=== PATIENT | female | born 1950 | race Caucasian/White ===

== ENCOUNTER 2016-11-28 08:19 | Outpatient (CLI) | payer MEDICARE, MEDICAID | END 2016-11-28 08:20 | disposition home or self-care (01) | DX: E11.40 Type 2 diabetes mellitus with diabetic neuropathy, unspecified (principal); E78.5 Hyperlipidemia, unspecified; R53.83 Other fatigue ==

== ENCOUNTER 2016-12-18 14:30 | Outpatient (CLI) | payer MEDICARE, MEDICAID | END 2016-12-18 14:31 | disposition home or self-care (01) | DX: E03.9 Hypothyroidism, unspecified (principal) ==

== ENCOUNTER 2017-02-27 13:37 | Outpatient (CLI) | payer MEDICARE, MEDICAID | END 2017-02-27 13:38 | disposition home or self-care (01) | DX: E03.9 Hypothyroidism, unspecified (principal) ==

== ENCOUNTER 2017-12-12 11:03 | Outpatient (CLI) | payer MEDICARE, MEDICAID ==
[2017-12-12 11:59] LABS: BASOPHILS # (AUTO) 0.1 10^3/uL (0.0-0.1); BASOPHILS % (AUTO) 1.6 %; EOSINOPHILS # (AUTO) 0.2 10^3/uL (0.0-0.7); EOSINOPHILS % (AUTO) 2.3 %; HGB - HEMOGLOBIN 13.4 g/dL (12.0-16.0); LYMPHOCYTES # (AUTO) 1.3 10^3/uL (1.5-3.5); LYMPHOCYTES % (AUTO) 16.7 %; MEAN CORPUSCULAR HEMOGLOBIN 29.3 pg (27.0-31.0); MEAN CORPUSCULAR HGB CONC 35.3 g/dL (32.0-36.0); MEAN CORPUSCULAR VOLUME 83.1 fL (81.0-99.0); MEAN PLATELET VOLUME 7.6 fL (7.9-10.8); MONOCYTES # (AUTO) 0.4 10^3/uL (0.0-1.0); NEUTROPHILS # (AUTO) 5.8 10^3/uL (1.5-6.6); NEUTROPHILS % (AUTO) 74.4 %; PLT - PLATELET COUNT 182 10^3/uL (130-450); RED BLOOD COUNT 4.58 10^6/uL (4.20-5.40); RED CELL DISTRIBUTION WIDTH 14.6 % (12.0-15.0); WHITE BLOOD COUNT 7.8 x10^3/uL (4.8-10.8)
[2017-12-12 12:10] LABS: BUN - BLOOD UREA NITROGEN 19 mg/dL (6-20); CALCIUM 9.1 mg/dL (8.5-10.3); CARBON DIOXIDE - CO2 26 mmol/L (21-32); CHLORIDE 104 mmol/L (101-111); CHOL/HDL RATIO 5.3 (<4.4); CHOLESTEROL 143 mg/dL; CREATININE 0.9 mg/dL (0.4-1.0); GFR - MDRD 62 (>89); GLUCOSE 242 mg/dL (70-100); HDL CHOLESTEROL 27 mg/dL; LDL CHOLESTEROL,CALCULATED 84 mg/dL; LDL/HDL RATIO 3.1 (<4.4); SODIUM 141 mmol/L (135-145); VLDL CHOLESTEROL 32 mg/dL
[2017-12-12 12:29] LABS: HB2 TOTAL 14.5 g/dL; HEMOGLOBIN A1C 0.92 g/dL
== END 2017-12-12 11:04 | disposition home or self-care (01) ==
LOC: LAB 11:03
PROVIDERS: ATTEND Physician Assistant Medical
DX: I12.9 Hypertensive chronic kidney disease with stage 1 through stage 4 chronic kidney disease, or unspecified chronic kidney disease (principal); N18.2 Chronic kidney disease, stage 2 (mild); Z79.4 Long term (current) use of insulin; E78.5 Hyperlipidemia, unspecified; M85.80 Other specified disorders of bone density and structure, unspecified site; E55.9 Vitamin D deficiency, unspecified; E11.40 Type 2 diabetes mellitus with diabetic neuropathy, unspecified; K21.9 Gastro-esophageal reflux disease without esophagitis; F32.9 Major depressive disorder, single episode, unspecified; I63.9 Cerebral infarction, unspecified
CPT/HCPCS: 36415; 80048; 80061; 82306; 83036; 83721; 85025

== ENCOUNTER 2017-12-29 08:50 | Outpatient (CLI) | payer MEDICARE, MEDICAID | END 2017-12-29 08:51 | disposition EMS.NT | LOC: EMS 08:50 | PROVIDERS: ATTEND Surgery | DX: M25.561 Pain in right knee (principal); W18.30XA Fall on same level, unspecified, initial encounter; Y92.039 Unspecified place in apartment as the place of occurrence of the external cause ==

== ENCOUNTER 2018-03-13 10:04 | Outpatient (CLI) | payer MEDICARE, MEDICAID ==
[2018-03-13 10:50] LABS: BASOPHILS # (AUTO) 0.1 10^3/uL (0.0-0.1); BASOPHILS % (AUTO) 0.7 %; EOSINOPHILS # (AUTO) 0.1 10^3/uL (0.0-0.7); EOSINOPHILS % (AUTO) 1.7 %; HGB - HEMOGLOBIN 13.3 g/dL (12.0-16.0); LYMPHOCYTES # (AUTO) 1.4 10^3/uL (1.5-3.5); LYMPHOCYTES % (AUTO) 16.2 %; MEAN CORPUSCULAR HEMOGLOBIN 29.3 pg (27.0-31.0); MEAN CORPUSCULAR HGB CONC 33.9 g/dL (32.0-36.0); MEAN CORPUSCULAR VOLUME 86.5 fL (81.0-99.0); MEAN PLATELET VOLUME 7.8 fL (7.9-10.8); MONOCYTES # (AUTO) 0.4 10^3/uL (0.0-1.0); MONOCYTES % (AUTO) 4.9 %; NEUTROPHILS # (AUTO) 6.5 10^3/uL (1.5-6.6); NEUTROPHILS % (AUTO) 76.5 %; PLT - PLATELET COUNT 167 10^3/uL (130-450); RED BLOOD COUNT 4.56 10^6/uL (4.20-5.40); RED CELL DISTRIBUTION WIDTH 14.3 % (12.0-15.0); WHITE BLOOD COUNT 8.5 x10^3/uL (4.8-10.8)
[2018-03-13 11:22] LABS: CALCIUM 9.3 mg/dL (8.5-10.3); CREATININE 0.9 mg/dL (0.4-1.0)
[2018-03-13 11:41] LABS: HB2 TOTAL 14.6 g/dL; HEMOGLOBIN A1C 1.02 g/dL; HEMOGLOBIN A1C % 8.5 % (4.6-6.2)
== END 2018-03-13 10:05 | disposition home or self-care (01) ==
LOC: LAB 10:04
PROVIDERS: ATTEND Physician Assistant Medical
DX: Z79.4 Long term (current) use of insulin (principal); E11.40 Type 2 diabetes mellitus with diabetic neuropathy, unspecified
CPT/HCPCS: 36415; 80048; 83036; 85025

== ENCOUNTER 2018-08-20 09:57 | Outpatient (CLI) | payer MEDICARE, MEDICAID ==
[2018-08-20 10:35] LABS: CALCIUM 8.9 mg/dL (8.5-10.3); CREATININE 0.9 mg/dL (0.4-1.0)
[2018-08-20 13:08] LABS: HB2 TOTAL 14.9 g/dL; HEMOGLOBIN A1C 0.93 g/dL; HEMOGLOBIN A1C % 7.9 % (4.6-6.2)
== END 2018-08-20 09:58 | disposition home or self-care (01) ==
LOC: LAB 09:57
PROVIDERS: ATTEND Physician Assistant Medical
DX: N18.2 Chronic kidney disease, stage 2 (mild) (principal); E11.40 Type 2 diabetes mellitus with diabetic neuropathy, unspecified
CPT/HCPCS: 36415; 80048; 83036

== ENCOUNTER 2018-12-10 08:00 | Outpatient (CLI) | payer MEDICARE, MEDICAID ==
[2018-12-10 19:57] LABS: HB2 TOTAL 14.9 g/dL; HEMOGLOBIN A1C 0.96 g/dL
== END 2018-12-10 23:59 | disposition home or self-care (01) ==
LOC: LAB.N 08:00
PROVIDERS: ATTEND Physician Assistant Medical
DX: E11.9 Type 2 diabetes mellitus without complications (principal)
CPT/HCPCS: 36415; 83036

== ENCOUNTER 2019-04-26 08:00 | Outpatient (CLI) | payer MEDICARE, MEDICAID ==
[2019-04-26 09:17] LABS: CHOL/HDL RATIO 4.2 (<4.4); CHOLESTEROL 135 mg/dL; HDL CHOLESTEROL 32 mg/dL; LDL CHOLESTEROL,CALCULATED 59 mg/dL; LDL/HDL RATIO 1.8 (<4.4); VLDL CHOLESTEROL 44 mg/dL
[2019-04-26 09:20] LABS: HB2 TOTAL 14.5 g/dL; HEMOGLOBIN A1C 1.08 g/dL
== END 2019-04-26 23:59 | disposition home or self-care (01) ==
LOC: LAB 08:00
PROVIDERS: ATTEND Physician Assistant Medical
DX: E11.9 Type 2 diabetes mellitus without complications (principal); E78.5 Hyperlipidemia, unspecified
CPT/HCPCS: 36415; 80061; 83036; 83721

== ENCOUNTER 2019-09-09 10:08 | Outpatient (CLI) | payer MEDICARE, MEDICAID | END 2019-09-09 10:09 | disposition home or self-care (01) | LOC: LAB 10:08 | PROVIDERS: ATTEND Physician Assistant Medical | DX: E03.9 Hypothyroidism, unspecified (principal) | CPT/HCPCS: 36415; 84443 ==

== ENCOUNTER 2019-09-15 10:15 | Outpatient (CLI) | payer MEDICARE, MEDICAID ==
[2019-09-15 12:43] LABS: CALCIUM 9.5 mg/dL (8.5-10.3); CREATININE 0.9 mg/dL (0.4-1.0)
[2019-09-15 13:03] LABS: HB2 TOTAL 14.3 g/dL; HEMOGLOBIN A1C 0.93 g/dL; HEMOGLOBIN A1C % 8.1 % (4.6-6.2)
== END 2019-09-15 23:59 | disposition home or self-care (01) ==
LOC: LAB.N 10:15
PROVIDERS: ATTEND Physician Assistant Medical
DX: E11.9 Type 2 diabetes mellitus without complications (principal)
CPT/HCPCS: 36415; 80048; 83036

== ENCOUNTER 2019-11-23 10:06 | Outpatient (CLI) | payer MEDICARE, MEDICAID ==
[2019-11-23 10:21] LABS: BASOPHILS # (AUTO) 0.1 10^3/uL (0.0-0.1); BASOPHILS % (AUTO) 0.5 %; EOSINOPHILS # (AUTO) 0.1 10^3/uL (0.0-0.7); EOSINOPHILS % (AUTO) 1.4 %; HGB - HEMOGLOBIN 13.7 g/dL (12.0-16.0); LYMPHOCYTES # (AUTO) 1.8 10^3/uL (1.5-3.5); LYMPHOCYTES % (AUTO) 19.6 %; MEAN CORPUSCULAR HEMOGLOBIN 29.7 pg (27.0-31.0); MEAN CORPUSCULAR HGB CONC 33.5 g/dL (32.0-36.0); MEAN CORPUSCULAR VOLUME 88.7 fL (81.0-99.0); MEAN PLATELET VOLUME 9.9 fL (7.9-10.8); MONOCYTES # (AUTO) 0.5 10^3/uL (0.0-1.0); MONOCYTES % (AUTO) 5.7 %; NEUTROPHILS # (AUTO) 6.7 10^3/uL (1.5-6.6); NEUTROPHILS % (AUTO) 72.3 %; PLT - PLATELET COUNT 175 10^3/uL (130-450); RED BLOOD COUNT 4.61 10^6/uL (4.20-5.40); RED CELL DISTRIBUTION WIDTH 13.6 % (12.0-15.0); WHITE BLOOD COUNT 9.2 x10^3/uL (4.8-10.8)
== END 2019-11-23 10:07 | disposition home or self-care (01) ==
LOC: LAB 10:06
PROVIDERS: ATTEND Physician Assistant Medical
DX: I10 Essential (primary) hypertension (principal)
CPT/HCPCS: 36415; 85025

== ENCOUNTER 2020-01-31 10:33 | Outpatient (CLI) | payer MEDICARE, MEDICAID ==
[2020-01-31 11:09] LABS: HB2 TOTAL 13.7 g/dL; HEMOGLOBIN A1C 0.79 g/dL; HEMOGLOBIN A1C % 7.4 % (4.6-6.2)
== END 2020-01-31 10:34 | disposition home or self-care (01) ==
LOC: LAB 10:33
PROVIDERS: ATTEND Physician Assistant Medical
DX: E11.9 Type 2 diabetes mellitus without complications (principal)
CPT/HCPCS: 36415; 83036

== ENCOUNTER 2021-01-21 16:29 | Inpatient (IN) | payer MEDICARE, MEDICAID ==
--- NOTE | 2021-01-21 16:53 | ED Physician Documentation ---
PD HPI DYSPNEA - Stated complaint Stated Complaint: SOA - Chief complaint Chief Complaint: Resp - History obtained from History obtained from: Patient, Family (Her daughter who is a nurse here) - Additional information Additional information: 70-year-old woman with history of diabetes, hypertension, CVA and PFO repair presents with 2 weeks of worsening shortness of breath, quite bad since last night. There is a mild cough with it. No fever or chills. No other respiratory symptoms. She has mild pedal edema but her daughter says it has been much worse in the past. Review of Systems Ten Systems: 10 systems reviewed and negative Constitutional: denies: Fever, Chills Nose: denies: Rhinorrhea / runny nose, Congestion Cardiac: reports: Pedal edema. denies: Palpitations, Calf pain Respiratory: reports: Dyspnea, Cough. denies: Hemoptysis, Wheezing PD PAST MEDICAL HISTORY - Past Medical History Cardiovascular: Hypertension, High cholesterol Endocrine/Autoimmune: Type 2 diabetes GI: GERD Musculoskeletal: Other - Present Medications Home Medications: Ambulatory Orders Medication Instructions Recorded Confirmed Furosemide [Lasix] 20 mg PO BID 08/08/14 01/21/21 Insulin Glargine [Lantus] 80 units SUBQ DAILY 08/08/14 01/21/21 Losartan [Cozaar] 100 mg PO DAILY 08/08/14 01/21/21 Metformin HCl [Metformin HCl ER] 1,000 mg PO BID 08/08/14 01/21/21 Aspirin 325 mg PO DAILY 08/09/14 01/21/21 Carvedilol [Coreg] 25 mg PO BID 08/09/14 01/21/21 DULoxetine [Cymbalta] 20 mg PO DAILY 08/09/14 01/21/21 Potassium Chloride 10 meq PO DAILY 08/09/14 01/21/21 raNITIdine HCL [Ranitidine HCl] 150 mg PO BID 08/09/14 01/21/21 Amlodipine Besylate 5 mg PO DAILY 10/09/15 01/21/21 Atorvastatin [Lipitor] 40 mg PO DAILY 10/09/15 01/21/21 Insulin Aspart [Novolog] 15 unit SQ AC 10/09/15 01/21/21 Topiramate 50 mg PO BID 10/09/15 01/21/21 - Allergies Allergies/Adverse Reactions: Allergies Allergy/AdvReac Type Severity Reaction Status Date / Time No Known Drug Allergies Allergy Verified 01/21/21 18:49 - Social History Smoking Status: Unknown if ever smoked PD ED PE NORMAL - Vitals Vital signs reviewed: Yes - General General: Alert and oriented X 3, Other (She appears breathless and gets agitated in a supine position. Some word finding difficulties due to stroke.) - HEENT HEENT: PERRL, EOMI - Neck Neck: Supple, no meningeal sign, No bony TTP - Cardiac Cardiac: RRR, No murmur - Respiratory Respiratory: No respiratory distress, Clear bilaterally - Abdomen Abdomen: Soft, Non tender - Back Back: No CVA TTP, No spinal TTP - Extremities Extremities: No calf tenderness / cord, Other (Trace bilateral pitting pedal edema) - Neuro Neuro: Alert and oriented X 3, Normal speech Results - Vitals Vitals: Vital Signs - 24 hr 01/21/21 01/21/21 01/21/21 16:40 16:57 17:09 Temperature 36.1 C L Heart Rate 71 68 Respiratory 21 16 Rate Blood Pressure 138/54 H 125/56 L O2 Saturation 80 L 98 95 01/21/21 01/21/21 01/21/21 17:20 17:46 17:47 Temperature 36.6 C Heart Rate 64 61 62 Respiratory 18 19 18 Rate Blood Pressure 132/55 H 127/56 L 127/56 L O2 Saturation 97 93 92 01/21/21 18:00 Temperature Heart Rate 61 Respiratory 13 Rate Blood Pressure 119/56 L O2 Saturation 91 L Oxygen O2 Source Room air Oxygen Flow Rate 4 - EKG (time done) 1632 Rate: Rate (enter#) (69) Rhythm: NSR, LAE Addison: RAD Intervals: Normal CO QRS: Low voltage Ischemia: Non specific changes - Labs Labs: Laboratory Tests 01/21/21 01/21/21 01/21/21 17:04 17:04 17:04 WBC 12.0 H RBC 4.59 Hgb 13.4 Hct 43.8 MCV 95.4 MCH 29.2 MCHC 30.6 L RDW 15.9 H Plt Count 225 MPV 9.7 Neut # (Auto) 10.0 H Lymph # (Auto) 1.2 L Green # (Auto) 0.5 Eos # (Auto) 0.0 Baso # (Auto) 0.1 Absolute Nucleated RBC 0.06 Nucleated RBC % 0.5 D-Dimer 246.0 Sodium 140 Potassium 4.4 Chloride 106 Carbon Dioxide 24 Anion Gap 10.0 BUN 32 H Creatinine 1.1 H Estimated GFR (MDRD) 49 L Glucose 140 H Calcium 9.4 Total Bilirubin 1.0 AST 14 ALT 16 Alkaline Phosphatase 73 Troponin I High Sens B-Natriuretic Peptide Total Protein 7.5 Albumin 4.0 Globulin 3.5 Albumin/Globulin Ratio 1.1 Lipase 41 Nasal Adenovirus (PCR) Nasal B. parapertussis DNA (PCR) Nasal Coronavir 229E PCR Nasal Coronavir HKU1 PCR Nasal Coronavir NL63 PCR Nasal Coronavir OC43 PCR Nasal Enterovir/Rhinovir PCR Nasal Influenza B PCR Nasal Influenza A PCR Nasal Parainfluen 1 PCR Nasal Parainfluen 2 PCR Nasal Parainfluen 3 PCR Nasal Parainfluen 4 PCR Nasal RSV (PCR) Nasal B.pertussis DNA PCR Nasal C.pneumoniae (PCR) Sin Human Metapneumo PCR Nasal M.pneumoniae (PCR) Nasal SARS-CoV-2 (PCR) 01/21/21 01/21/21 01/21/21 17:04 17:04 17:05 WBC RBC Hgb Hct MCV MCH MCHC RDW Plt Count MPV Neut # (Auto) Lymph # (Auto) Green # (Auto) Eos # (Auto) Baso # (Auto) Absolute Nucleated RBC Nucleated RBC % D-Dimer Sodium Potassium Chloride Carbon Dioxide Anion Gap BUN Creatinine Estimated GFR (MDRD) Glucose Calcium Total Bilirubin AST ALT Alkaline Phosphatase Troponin I High Sens 18.7 H* B-Natriuretic Peptide 338 H Total Protein Albumin Globulin Albumin/Globulin Ratio Lipase Nasal Adenovirus (PCR) NOT DETECTED Nasal B. parapertussis DNA (PCR) NOT DETECTED Nasal Coronavir 229E PCR NOT DETECTED Nasal Coronavir HKU1 PCR NOT DETECTED Nasal Coronavir NL63 PCR NOT DETECTED Nasal Coronavir OC43 PCR NOT DETECTED Nasal Enterovir/Rhinovir PCR NOT DETECTED Nasal Influenza B PCR NOT DETECTED Nasal Influenza A PCR NOT DETECTED Nasal Parainfluen 1 PCR NOT DETECTED Nasal Parainfluen 2 PCR NOT DETECTED Nasal Parainfluen 3 PCR NOT DETECTED Nasal Parainfluen 4 PCR NOT DETECTED Nasal RSV (PCR) NOT DETECTED Nasal B.pertussis DNA PCR NOT DETECTED Nasal C.pneumoniae (PCR) NOT DETECTED Sin Human Metapneumo PCR NOT DETECTED Nasal M.pneumoniae (PCR) NOT DETECTED Nasal SARS-CoV-2 (PCR) NOT DETECTED - Rads (name of study) 1v chest Radiology: EMP read contemporaneously (c/w CHF exac) PD MEDICAL DECISION MAKING - ED course ED course: 70-year-old woman presents with shortness of breath. She is slightly agitated and feeling better when sitting up. She has significant orthopnea. Pulmonary examination is somewhat limited by body habitus but the remainder of the work-up suggests CHF as the cause. She received IV Lasix here and Dr. Wiggins will admit Given the need for supplemental oxygen. Departure - Departure Disposition: 66 [facility] DC/Xfer Clinical Impression: Type 2 diabetes mellitus treated with insulin, History of Amplatzer atrial septal defect closure, Acute respiratory failure with hypoxia Congestive heart failure Qualifiers: Heart failure type: unspecified Heart failure chronicity: unspecified Qualified Code(s): I50.9 - Heart failure, unspecified Condition: Stable Discharge Date/Time: 01/21/21 19:04
--- NOTE | 2021-01-21 17:11 | XRAY Report ---
PROCEDURE: Chest 1 View X-Ray INDICATIONS: Chest Pain TECHNIQUE: One view of the chest was acquired. COMPARISON: 04/21/2014 FINDINGS: Surgical changes and devices: None. Lungs and pleura: Pulmonary edema, small right pleural effusion, bibasilar atelectasis. Mediastinum: Mediastinal contours appear normal. Cardiomegaly. Bones and chest wall: No suspicious bony lesions. Overlying soft tissues appear unremarkable. IMPRESSION: Congestive heart failure exacerbation. Reviewed by: Jake Lee MD on 01/21/2021 4:10 PM [facility] Approved by: Jake Lee MD on 01/21/2021 4:10 PM [facility] Station ID: [id number]
[2021-01-21 17:21] LABS: BASOPHILS # (AUTO) 0.1 10^3/uL (0.0-0.1); BASOPHILS % (AUTO) 0.7 %; EOSINOPHILS % (AUTO) 0.3 %; HCT - HEMATOCRIT 43.8 % (37.0-47.0); HGB - HEMOGLOBIN 13.4 g/dL (12.0-16.0); LYMPHOCYTES # (AUTO) 1.2 10^3/uL (1.5-3.5); LYMPHOCYTES % (AUTO) 9.7 %; MEAN CORPUSCULAR HEMOGLOBIN 29.2 pg (27.0-31.0); MEAN CORPUSCULAR HGB CONC 30.6 g/dL (32.0-36.0); MEAN CORPUSCULAR VOLUME 95.4 fL (81.0-99.0); MEAN PLATELET VOLUME 9.7 fL (7.9-10.8); MONOCYTES # (AUTO) 0.5 10^3/uL (0.0-1.0); MONOCYTES % (AUTO) 4.3 %; NEUTROPHILS % (AUTO) 82.9 %; NRBC ABSOLUTE COUNT (AUTO) 0.06 x10^3/uL; NUCLEATED RED BLOOD CELLS AUTO 0.5 /100WBC; PLT - PLATELET COUNT 225 10^3/uL (130-450); RED BLOOD COUNT 4.59 10^6/uL (4.20-5.40); RED CELL DISTRIBUTION WIDTH 15.9 % (12.0-15.0)
[2021-01-21 17:34] LABS: ALBUMIN/GLOBULIN RATIO 1.1 (1.0-2.2); CALCIUM 9.4 mg/dL (8.5-10.3); CREATININE 1.1 mg/dL (0.4-1.0); POTASSIUM 4.4 mmol/L (3.5-5.0); TOTAL PROTEIN 7.5 g/dL (6.7-8.2)
[2021-01-21] MEDS ORDERED: FUROSEMIDE 40 MG/4 ML VIAL IVP STA (17:53)
[2021-01-21] MEDS ORDERED: SODIUM CHLORIDE FLUSH 0.9% 10 ML SYRINGE IVP PRN (18:02)
[2021-01-21] MEDS ORDERED: ONDANSETRON ODT 4 MG TABLET TL PRN (18:09)
[2021-01-21] MEDS ORDERED: ACETAMINOPHEN 325 MG TABLET PO PRN (18:09)
[2021-01-21] MEDS ORDERED: ONDANSETRON 4 MG/2 ML VIAL IVP PRN (18:09)
[2021-01-21] MEDS ORDERED: oxyCODONE 5 MG TABLET PO PRN (18:09)
[2021-01-21 18:22] LABS: B. PARAPERTUSSIS- RESP PCR PAN NOT DETECTED; B. PERTUSSIS- RESP PCR PANEL NOT DETECTED; C. PNEUMONIAE- RESP PCR PANEL NOT DETECTED; CORONAVIRUS 229E-RESP PCR NOT DETECTED; CORONAVIRUS HKU1-RESP PCR NOT DETECTED; CORONAVIRUS NL63-RESP PCR NOT DETECTED; CORONAVIRUS OC43-RESP PCR NOT DETECTED; HUMAN METAPNEUMOVIRUS NOT DETECTED; INFLUENZA A- RESP PCR PANEL NOT DETECTED; INFLUENZA B - RESP PCR PANEL NOT DETECTED; M. PNEUMONIAE- RESP PCR PANEL NOT DETECTED; PARAINFLUENZA VIRUS 1 NOT DETECTED; PARAINFLUENZA VIRUS 2 NOT DETECTED; PARAINFLUENZA VIRUS 3 NOT DETECTED; PARAINFLUENZA VIRUS 4 NOT DETECTED; RHINOVIRUS/ENTEROVIRUS NOT DETECTED; RSV- RESP PCR PANEL NOT DETECTED; SARS-CoV-2 -RESP PCR PANEL NOT DETECTED
--- NOTE | 2021-01-21 19:11 | HISTORY & PHYSICAL EXAMINATION ---
Chief Complaint - Chief Complaint Chief Complaint: Shortness of breath History of Present Illness - Admitted From Admitted From:: Home - History Obtained From Records Reviewed: Yes History obtained from: Patient, Daugther, Daytime Hospitalist, EMR Exam Limitations: Patient is lethargic and is only able to contribute a part of the history. - History of Present Illness HPI Comment/Other: This is a 70-year-old female with a past medical history significant for hypertension, ASD status post closure, insulin-dependent type 2 diabetes mellitus who presents today complaining of dyspnea. She states her symptoms have been present for the past few days and have been progressive. She denies having any lower extremity edema or chest pain. She denies having cough. Reports occasional subjective fevers and chills. She denies orthopnea. She does have some dyspnea at rest but it is worse with exertion and that is when it is most prominent. Her daughter tells me that she has been fatigued over the past 2 weeks but never complained of shortness of breath. She noticed her mom has also complained of more fatigue over the past few days. Her mom does have some slurred speech at times he now and she states this does happen when she is extremely lethargic and fatigued. For the most part, she has minimal deficits from her prior stroke and she ambulates with a cane although for the past week she has been using a walker due to increased fatigue. Patient does have occasional left lower extremity pain from her prior stroke. The patient's daughter does not believe she has had an echocardiogram in about a year now. She is scheduled to see the [facility] one more time given her history of ASD closure. 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 The patient denies dysuria, urgency, focal deficits. In the emergency department, she was found to be hypoxic with an oxygen saturation of 80% on room air. This improved to mid 90s on 4 L of oxygen via nasal cannula. Her labs were significant for a white count of 12,000. Her troponin was 18.7 and BNP was 338. Chest x-ray was consistent with pulmonary edema. Her EKG shows sinus rhythm with a prolonged QTC and nonspecific ST segment changes. She was given 40 mg of Lasix IV in the emergency department and medicine was consulted for admission. I did discuss goals of care with the patient and she asked me to speak with her daughter regarding this. I spoke with the patient's daughter and she would like her mom to be a full code for the time being. She states in the past that her mother had stated she did not want CPR and would not want prolonged mechanical ventilation but was okay with temporary mechanical ventilation. Despite her prior wishes of not wanting CPR, the patient's daughter would like her to be a full code for the time being and will assess her condition on a daily basis and if she were to truly take a rapid decline then she would consider making her a DNR. History - Past Medical History Cardiovascular: reports: Hypertension, High cholesterol Endocrine/Autoimmune: reports: Type 2 diabetes GI: reports: GERD Musculoskeletal: reports: Other - Past Surgical History Cardiovascular: reports: Other (ASD closure with Amplatzer device in January 2018.) - Family & Social History Family History Comment/Other: Daughter tells me that the patient's mother in her 60s from myocardial infarction. Her father in his 70s from either esophageal or gastric cancer. Living arrangement: At home Living Situation: Alone Social History Notes: She reports a remote history of smoking but quit over 30 years ago. She will have occasional alcohol use. She lives at home alone. Meds/Allgy - Home Medications Home Medications: Ambulatory Orders Medication Instructions Recorded Confirmed Furosemide [Lasix] 20 mg PO BID 08/08/14 01/21/21 Insulin Glargine [Lantus] 80 units SUBQ DAILY 08/08/14 01/21/21 Losartan [Cozaar] 100 mg PO DAILY 08/08/14 01/21/21 Metformin HCl [Metformin HCl ER] 1,000 mg PO BID 08/08/14 01/21/21 Aspirin 325 mg PO DAILY 08/09/14 01/21/21 Carvedilol [Coreg] 25 mg PO BID 08/09/14 01/21/21 DULoxetine [Cymbalta] 20 mg PO DAILY 08/09/14 01/21/21 Potassium Chloride 10 meq PO DAILY 08/09/14 01/21/21 raNITIdine HCL [Ranitidine HCl] 150 mg PO BID 08/09/14 01/21/21 Amlodipine Besylate 5 mg PO DAILY 10/09/15 01/21/21 Atorvastatin [Lipitor] 40 mg PO DAILY 10/09/15 01/21/21 Insulin Aspart [Novolog] 15 unit SQ AC 10/09/15 01/21/21 Topiramate 50 mg PO BID 10/09/15 01/21/21 - Allergies Allergies/Adverse Reactions: Allergies Allergy/AdvReac Type Severity Reaction Status Date / Time No Known Drug Allergies Allergy Verified 01/21/21 18:49 Review of Systems - Constitutional Constitutional: reports: Fatigue, Fever, Chills - Eyes Eyes: denies: Blurred vision - Cardiovascular Cariovascular: reports: Exertional dyspnea, Decr. exercise tolerance. denies: Chest pain, Edema - Respiratory Respiratory: reports: SOB at rest, SOB with exertion. denies: Cough - Gastrointestinal Gastrointestinal: denies: Abdominal pain, Nausea, Vomiting - Genitourinary Genitourinary: denies: Dysuria, Frequency - Neurological Neurological: reports: Pre-existing deficit. denies: General weakness, Focal weakness - All Other Systems All Other Systems: reports: Other (Review of systems is limited due to her lethargy.) Prior Level of Functionality: She is independent with her ADLs. Exam - Vital Signs Reviewed Vital Signs: Yes Vital Signs: Vital Signs x48h Temp Pulse Resp BP Pulse Ox 01/21/21 18:31 62 18 126/54 L 92 01/21/21 18:00 61 13 119/56 L 91 L 01/21/21 17:47 62 18 127/56 L 92 01/21/21 17:46 36.6 C 61 19 127/56 L 93 01/21/21 17:20 64 18 132/55 H 97 01/21/21 17:09 68 16 125/56 L 95 01/21/21 16:57 98 01/21/21 16:40 36.1 C L 71 21 138/54 H 80 L - Physical Exam General Appearance: positive: Lethargic (Appears fatigued will open her eyes and answer questions but will fall asleep shortly after.) Eyes Bilateral: positive: Normal inspection, PERRL, Conjunctivae nml ENT: positive: ENT inspection nml, Other (Nasal cannula in place.) Respiratory: positive: No respiratory distress, Other (Diminished breath sounds bilaterally. Faint crackles.). negative: Wheezes, Rales Cardiovascular: positive: Regular rate & rhythm. negative: No murmur, Irregularly irregular, Tachycardia Abdomen: positive: Non-tender, No distention, Other (There is a periumbilical red patch.). negative: Tenderness, Guarding, Rebound Skin: positive: Warm Extremities: positive: Full ROM, Pedal edema (Trace edema in bilateral lower extremities.) Neurologic/Psychiatric: positive: Motor nml, Slurred/abnml speech (She does have expressive aphasia at times and at other times, her speech is clear. She will repeat certain answers.), Other (She is able to move all 4 extremities.). negative: Disoriented to person, Disoriented to place, Disoriented to time, Facial droop Sepsis Event Note (H) - Evaluation Possible source of Sepsis: positive: Genitourinary Conclusion/Plan - Problem List (1) Acute respiratory failure with hypoxia Conclusion/Plan: Suspect this is secondary to acute congestive heart failure. Her chest x-ray is consistent with pulmonary edema and although her BNP is only mildly elevated, this is likely decreased given her obesity. She is requiring 4 L of oxygen via nasal cannula to maintain her oxygen saturations. We will continue to diurese her with Lasix 40 mg IV daily. Daily weights. Strict I's and O's. (2) Suspected CHF (congestive heart failure) Conclusion/Plan: She reportedly had an echocardiogram in October 2020 which showed a preserved ejection fraction and functioning Amplatzer device. Her presentation at this time is consistent with CHF given the pulmonary edema on x-ray. We will diurese her with Lasix 40 mg IV. She was due for an echocardiogram in February of this year, we will obtain echocardiogram with bubble study tomorrow.. We will trend troponin. Daily weights and strict I's and O's. Recheck BNP in 2 days. (3) Lethargy Conclusion/Plan: She is lethargic today and her daughter tells me this is unusual for her. She is not disoriented and is able to tell me to the hospital and why she is here. She does complain of fatigue. No focal deficits on exam that would suggest a stroke. This may be related to hypoxia but there is also concern for hypercapnia given her obesity and possible high obesity hypoventilation syndrome. We'll check an ABG as well as her blood glucose given she is a diabetic. If she is hypercapnic she will need transfer to the intensive care unit for BiPAP. We'll also check TSH and ammonia level. If these are all unremarkable and she remains lethargic then we'll obtain a stat CT of the head. (4) History of Amplatzer atrial septal defect closure Conclusion/Plan: She is a history of ASD closure in January 2018. She follows with cardiology at [facility] as well as the [facility]. Review of her prior cardiology records from [facility] stated that she was to have a repeat echocardiogram in February of this year. We'll repeat a complete echocardiogram with bubble study tomorrow. (5) Hypothyroidism Conclusion/Plan: We will continue home Synthroid. (6) Type 2 diabetes mellitus treated with insulin Conclusion/Plan: Continue her home insulin regimen. Carb controlled diet. Check A1c. (7) BLOSSOM (obstructive sleep apnea) Conclusion/Plan: She is not on CPAP therapy. Recommend outpatient follow-up. (8) History of CVA with residual deficit Conclusion/Plan: She has a history of stroke with minor residual left lower extremity weakness. H er daughter also notes that she will occasionally have expressive aphasia when she is fatigued. We will continue her home aspirin and statin. (9) Hypertension Conclusion/Plan: Her blood pressure is currently well controlled. We will continue her home amlodipine and losartan. - Lab Results Lab results reviewed: Yes Fish Bones: 01/21/21 17:04 01/21/21 17:04 - Diagnostic Imaging Results Diagnostic Imaging Results: positive: Final report reviewed - EKG Results EKG Interpreted Independently: Yes EKG Findings: EKG shows a sinus rhythm with nonspecific ST segment changes. QTC is prolonged at 496. Core Measures - Anticipated LOS I expect patient to be DC'd or transferred within 96 hours.: Yes - Issues Hospital Issues and Management Plan: 70-year-old female with a history of ASD closure, prior stroke, hypertension presents with worsening dyspnea found to have likely CHF. She is hypoxic so we will admit to inpatient status for IV diuresis. - DVT/VTE - Prophylaxis VTE/DVT Device ordered at admit?: Yes VTE/DVT Prophylaxis med ordered at admit?: Yes
[2021-01-21] MEDS: INSULIN ASPART 300 UNIT/3 ML PEN SUBQ SCH (20:51)
[2021-01-21] MEDS ORDERED: ATORVASTATIN 40 MG TABLET PO SCH (21:00)
[2021-01-21] MEDS ORDERED: INSULIN GLARGINE 300 UNIT/3 ML PEN SUBQ SCH (21:00)
[2021-01-21 21:02] LABS: ABG BASE EXCESS -10.3 mmol/L (-2.0-3.0); ABG HCO3 22.8 mmol/L (22.0-26.0); ABG OXYGEN SATURATION 90 % (94-98); ABG PO2 77 mmHg (80-100); ABG TCO2 25.6 MMOL/L (21.0-29.0); ALLEN TEST POSITIVE
[2021-01-21 21:05] LABS: ABG PCO2 93 mmHg (34-45); ABG PH 7.01 (7.35-7.45)
[2021-01-21] MEDS: TOPIRAMATE 25 MG TABLET PO SCH (21:46)
[2021-01-21] MEDS: carvediloL 12.5 MG TABLET PO SCH (21:46)
[2021-01-21] MEDS: NYSTATIN POWDER 15 GM TOP SCH (21:52)
[2021-01-21 23:30] LABS: ABG BASE EXCESS -8.2 mmol/L (-2.0-3.0); ABG HCO3 23.8 mmol/L (22.0-26.0); ABG RESPIRATORY RATE 18 b/min; ABG TCO2 26.4 MMOL/L (21.0-29.0); ALLEN TEST POSITIVE
[2021-01-21 23:31] LABS: ABG OXYGEN SATURATION 67 % (94-98); ABG PCO2 85 mmHg (34-45); ABG PH 7.06 (7.35-7.45); ABG PO2 42 mmHg (80-100)
[2021-01-22 00:35] LABS: BASOPHILS # (AUTO) 0.1 10^3/uL (0.0-0.1); BASOPHILS % (AUTO) 0.4 %; EOSINOPHILS % (AUTO) 0.1 %; HCT - HEMATOCRIT 40.8 % (37.0-47.0); HGB - HEMOGLOBIN 12.3 g/dL (12.0-16.0); LYMPHOCYTES % (AUTO) 7.7 %; MEAN CORPUSCULAR HEMOGLOBIN 29.4 pg (27.0-31.0); MEAN CORPUSCULAR HGB CONC 30.1 g/dL (32.0-36.0); MEAN CORPUSCULAR VOLUME 97.4 fL (81.0-99.0); MEAN PLATELET VOLUME 9.9 fL (7.9-10.8); MONOCYTES # (AUTO) 0.6 10^3/uL (0.0-1.0); MONOCYTES % (AUTO) 4.5 %; NEUTROPHILS # (AUTO) 11.5 10^3/uL (1.5-6.6); NRBC ABSOLUTE COUNT (AUTO) 0.03 x10^3/uL; NUCLEATED RED BLOOD CELLS AUTO 0.2 /100WBC; PLT - PLATELET COUNT 209 10^3/uL (130-450); RED BLOOD COUNT 4.19 10^6/uL (4.20-5.40); RED CELL DISTRIBUTION WIDTH 15.9 % (12.0-15.0); WHITE BLOOD COUNT 13.3 x10^3/uL (4.8-10.8)
[2021-01-22] MEDS: SODIUM CHLORIDE FLUSH 0.9% 10 ML SYRINGE IVP SCH ×2 (00:45→09:38)
[2021-01-22 00:50] LABS: CALCIUM 9.1 mg/dL (8.5-10.3); CREATININE 1.4 mg/dL (0.4-1.0); MAGNESIUM 1.6 mg/dL (1.7-2.8); PHOSPHORUS 6.9 mg/dL (2.5-4.6); POTASSIUM 5.5 mmol/L (3.5-5.0)
[2021-01-22 01:49] LABS: ABG BASE EXCESS -7.2 mmol/L (-2.0-3.0); ABG HCO3 24.9 mmol/L (22.0-26.0); ABG RESPIRATORY RATE 18 b/min; ABG TCO2 27.6 MMOL/L (21.0-29.0); ALLEN TEST POSITIVE
[2021-01-22 01:50] LABS: ABG OXYGEN SATURATION 78 % (94-98); ABG PCO2 89 mmHg (34-45); ABG PH 7.06 (7.35-7.45); ABG PO2 50 mmHg (80-100)
[2021-01-22] MEDS ORDERED: cefTRIAXone 2 GM in SODIUM CHLORIDE 0.9% MINIBAG 100 ML IV SCH ×2 (01:58→21:00)
[2021-01-22] MEDS ORDERED: DOXYCYCLINE INJ 100 MG in SODIUM CHLORIDE 0.9% MINIBAG 100 ML IV SCH ×2 (02:00→18:00)
[2021-01-22] MEDS ORDERED: SODIUM CHLORIDE 0.9% 500 ML IV ONE (02:38)
[2021-01-22 05:10] LABS: ABG BASE EXCESS -8.3 mmol/L (-2.0-3.0); ABG HCO3 21.9 mmol/L (22.0-26.0); ABG OXYGEN SATURATION 92 % (94-98); ABG PO2 72 mmHg (80-100); ALLEN TEST POSITIVE
[2021-01-22 05:14] LABS: BASOPHILS # (AUTO) 0.1 10^3/uL (0.0-0.1); BASOPHILS % (AUTO) 0.4 %; EOSINOPHILS % (AUTO) 0.2 %; HGB - HEMOGLOBIN 11.8 g/dL (12.0-16.0); LYMPHOCYTES % (AUTO) 8.5 %; MEAN CORPUSCULAR HEMOGLOBIN 28.8 pg (27.0-31.0); MEAN CORPUSCULAR HGB CONC 29.5 g/dL (32.0-36.0); MEAN CORPUSCULAR VOLUME 97.6 fL (81.0-99.0); MEAN PLATELET VOLUME 9.8 fL (7.9-10.8); MONOCYTES # (AUTO) 0.6 10^3/uL (0.0-1.0); MONOCYTES % (AUTO) 5.2 %; NEUTROPHILS # (AUTO) 10.1 10^3/uL (1.5-6.6); NEUTROPHILS % (AUTO) 84.4 %; NRBC ABSOLUTE COUNT (AUTO) 0.04 x10^3/uL; NUCLEATED RED BLOOD CELLS AUTO 0.3 /100WBC; PLT - PLATELET COUNT 200 10^3/uL (130-450); RED CELL DISTRIBUTION WIDTH 15.8 % (12.0-15.0)
[2021-01-22 05:29] LABS: CALCIUM 8.9 mg/dL (8.5-10.3); CREATININE 1.6 mg/dL (0.4-1.0); MAGNESIUM 1.6 mg/dL (1.7-2.8); PHOSPHORUS 6.7 mg/dL (2.5-4.6); POTASSIUM 4.9 mmol/L (3.5-5.0)
[2021-01-22 05:49] LABS: ABG PCO2 69 mmHg (34-45); ABG PH 7.12 (7.35-7.45)
--- NOTE | 2021-01-22 08:18 | XRAY Report ---
PROCEDURE: Chest 1 View X-Ray INDICATIONS: Follow up bilateral opacities. Hypoxia. TECHNIQUE: One view of the chest was acquired. COMPARISON: 01/22/2021 at 0015 hours. FINDINGS: Surgical changes and devices: None. Lungs and pleura: No pneumothorax. Small bilateral pleural effusions. There is decreased, moderate d iffuse reticulonodular pulmonary opacity, consistent with resolving edema/CHF. Mild bibasilar atelect asis versus pneumonia. Mediastinum: Mediastinal contours appear normal. Heart size is enlarged. Bones and chest wall: No suspicious bony lesions. Overlying soft tissues appear unremarkable. IMPRESSION: 1. Resolving bilateral pulmonary edema. 2. Bibasilar atelectasis versus pneumonia. Reviewed by: Iron Meyer MD on 01/22/2021 8:16 AM PST Approved by: Iron Meyer MD on 01/22/2021 8:16 AM [facility] Station ID: [id number]
--- NOTE | 2021-01-22 08:56 | XRAY Report ---
PROCEDURE: Chest 1 View X-Ray INDICATIONS: Worsening hypoxia. TECHNIQUE: One view of the chest was acquired. COMPARISON: 01/21/2021 FINDINGS: Surgical changes and devices: None. Increased retrocardiac consolidative opacity. Lung volumes are decreased. There are also ill-defined bilateral groundglass and ill-defined opacities. Curly B lines in the right lung base. Probable small right pleural effusion with adjacent atelectasis. Cannot exclude small left pleural fluid. No pneumo thorax Mediastinum: Mediastinal contours appear normal. Heart size is normal. Bones and chest wall: No suspicious bony lesions. Overlying soft tissues appear unremarkable. IMPRESSION: Diffuse bilateral groundglass and ill-defined opacities suggestive of pulmonary edema. Worsening retr ocardiac consolidation, and small bilateral pleural effusions with adjacent atelectasis. Recommend cl inical correlation to exclude underlying infection. Reviewed by: Lance Burton MD on 01/22/2021 8:54 AM PST Approved by: Lance Burton MD on 01/22/2021 8:54 AM PST Station ID: [id number]
[2021-01-22] MEDS ORDERED: POTASSIUM CHLORIDE 10 MEQ CAPSULE PO SCH (09:00)
[2021-01-22] MEDS ORDERED: ENOXAPARIN 40 MG/0.4 ML SYRINGE SUBQ SCH (09:00)
[2021-01-22] MEDS ORDERED: FUROSEMIDE 40 MG/4 ML VIAL IVP SCH (09:00)
[2021-01-22] MEDS ORDERED: LOSARTAN 50 MG TABLET PO SCH (09:00)
[2021-01-22] MEDS ORDERED: ASPIRIN 325 MG TABLET PO SCH (09:00)
[2021-01-22] MEDS ORDERED: DULoxetine 20 MG CAPSULE PO SCH (09:00)
[2021-01-22] MEDS: carvediloL 12.5 MG TABLET PO SCH (09:08)
[2021-01-22] MEDS: TOPIRAMATE 25 MG TABLET PO SCH (09:15)
[2021-01-22] MEDS: INSULIN ASPART 300 UNIT/3 ML PEN SUBQ SCH ×4 (09:15→13:02)
[2021-01-22] MEDS: NYSTATIN POWDER 15 GM TOP SCH (09:39)
[2021-01-22 12:10] LABS: ESTIMATED AVERAGE GLUCOSE 146 mg/dL (70-100); HEMOGLOBIN A1c% 6.7 % (4.27-6.07)
[2021-01-22 13:58] LABS: CORONAVIRUS 229E-RESP PCR NOT DETECTED; CORONAVIRUS HKU1-RESP PCR NOT DETECTED; CORONAVIRUS NL63-RESP PCR NOT DETECTED; CORONAVIRUS OC43-RESP PCR NOT DETECTED; HUMAN METAPNEUMOVIRUS NOT DETECTED; INFLUENZA A- RESP PCR PANEL NOT DETECTED; RHINOVIRUS/ENTEROVIRUS NOT DETECTED; SARS-CoV-2 -RESP PCR PANEL NOT DETECTED
[2021-01-22 13:59] LABS: B. PARAPERTUSSIS- RESP PCR PAN NOT DETECTED; B. PERTUSSIS- RESP PCR PANEL NOT DETECTED; C. PNEUMONIAE- RESP PCR PANEL NOT DETECTED; INFLUENZA B - RESP PCR PANEL NOT DETECTED; M. PNEUMONIAE- RESP PCR PANEL NOT DETECTED; PARAINFLUENZA VIRUS 1 NOT DETECTED; PARAINFLUENZA VIRUS 2 NOT DETECTED; PARAINFLUENZA VIRUS 3 NOT DETECTED; PARAINFLUENZA VIRUS 4 NOT DETECTED; RSV- RESP PCR PANEL NOT DETECTED
[2021-01-22 15:22] VITALS: BP 135/64
--- NOTE | 2021-01-22 16:09 | Discharge Plan ---
Discharge Plan Problem Reviewed?: Yes Disposition: 02 Transfer Acute Care Hosp Condition: Stable No Smoking: If you smoke, Please STOP! Call for help. Follow-up with: Brenda Roa ARNP, INTELLIGENCE RESEARCH SPECIALIST-C [Primary Care Provider] -
--- NOTE | 2021-01-22 16:15 | DISCHARGE SUMMARY ---
"Discharge Summary Admit Date: 01/21/21 Discharge Date: 01/22/21 Discharging Provider: Stella Wiggins MD Code Status: Attempt Resuscitation Condition at Discharge: Stable Discharge Disposition: 02 Transfer Acute Care Hosp Discharge Facility Name: [facility] - DIAGNOSES Discharge Diagnoses with Status of Each Condition: 1. Acute on chronic respiratory failure with hypercapnia and hypoxia 2. Respiratory acidosis 3. Morbid obesity 4. Type 2 diabetes mellitus, without long-term use of insulin 5. Hypertension 6. GERD 7. History of stroke with minimal residual left hemiplegia 8. Groundglass opacities on chest x-ray 9. Hypothyroidism - HPI History of Present Illness: This is a 70-year-old female with a past medical history significant for hypertension, ASD status post closure, insulin-dependent type 2 diabetes mellitus who presents today complaining of dyspnea. She states her symptoms have been present for the past few days and have been progressive. She denies having any lower extremity edema or chest pain. She denies having cough. Reports occasional subjective fevers and chills. She denies orthopnea. She does have some dyspnea at rest but it is worse with exertion and that is when it is most prominent. Her daughter tells me that she has been fatigued over the past 2 weeks but never complained of shortness of breath. She noticed her mom has also complained of more fatigue over the past few days. Her mom does have some slurred speech at times he now and she states this does happen when she is extremely lethargic and fatigued. For the most part, she has minimal deficits from her prior stroke and she ambulates with a cane although for the past week s he has been using a walker due to increased fatigue. Patient does have occasional left lower extremity pain from her prior stroke. The patient's daughter does not believe she has had an echocardiogram in about a year now. She is scheduled to see the [facility] one more time given her history of ASD closure. The patient's other plumbing warehouse helper is at [facility]. The patient denies dysuria, urgency, focal deficits. In the emergency department, she was found to be hypoxic with an oxygen saturation of 80% on room air. This improved to mid 90s on 4 L of oxygen via nasal cannula. Her labs were significant for a white count of 12,000. Her troponin was 18.7 and BNP was 338. Chest x-ray was consistent with pulmonary edema. Her EKG shows sinus rhythm with a prolonged QTC and nonspecific ST segment changes. She was given 40 mg of Lasix IV in the emergency department and medicine was consulted for admission. I did discuss goals of care with the patient and she asked me to speak with her daughter regarding this. I spoke with the patient's daughter and she would like her mom to be a full code for the time being. She states in the past that her mother had stated she did not want CPR and would not want prolonged mechanical ventilation but was okay with temporary mechanical ventilation. Despite her prior wishes of not wanting CPR, the patient's daughter would like her to be a full code for the time being and will assess her condition on a daily basis and if she were to truly take a rapid decline then she would consider making her a DNR. - Past Medical History Cardiovascular: reports: Hypertension, High cholesterol Endocrine/Autoimmune: reports: Type 2 diabetes GI: reports: GERD Musculoskeletal: reports: Other - CONSULTS | PROCEDURES Procedures: 3 chest x-rays done over the course of the admission shows diffuse bilateral groundglass and ill-defined opacities suggestive of pulmonary edema. She has w orsening retrocardiac consolidation and small bilateral effusions with adjacent atelectasis. Echocardiogram had an ejection fraction of 60 to 65%. Grade 1 diastolic dysfunction. No regional wall motions abnormalities. Moderate aortic valve sclerosis without stenosis. Moderately abnormal right heart pressures with an RVSP at 61 mmHg. This is a preliminary report and final report must be revie wed. - HOSPITAL COURSE Hospital Course: Patient was initially treated with diuresis for the initial diagnosis of probable congestive heart failure. However, BNP was not elevated, she did not respond to diuresis and had no urine output. ABG was done and we initially thought that the ABG was venous because of the severity of its indices. She was acidotic, hypercapnic, hypoxic. It did not correlate with her O2 sat monitor which that she had normal O2 sats. The ABG was repeated and it confirmed the initial pH of 7.01, high PaCO2, a low PO2. She was placed in the ICU with BiPAP. BiPAP pressures were titrated to get her to a pH of 7.12, PCO2 69, PO2 72. Chest x-ray was reviewed and showed her to have the diffuse patchy infiltrates were compatible with either infection or CHF. She was empirically treated with Rocephin and doxycycline. Covid test was repeated thinking that we may be missing Covid pneumonia that was also negative. So she had 2 Covid test that were negative. She started showing subtle signs of worsening in that FiO2 is 100%. Oxygenation barely acceptable. Creatinine started climbing from 1.1->>1.6. Again no urine output. Repeat echo showed a patent patch with out an AFO. Ejection fraction was normal. She had mild pulmonary hypertension. I consulted with the [facility] MICU on-call. They did feel that this patient was an appropriate patient to transfer. I spoke to the patient and her daughter, Shelia Lawson. Shelia has been at the bedside since the patient's admission. I updated them on her condition. As such she was accepted in transfer in critical condition. She is awake, alert. She wants to take the BiPAP mask off to speak to you. Temperature is 36.6. Pulse is 63. Blood pressure 135/64. Respirations 24. She is 97% saturated on BiPAP. FiO2 100%. 5 foot 4 inch female who is 118 kg. Fine crackles throughout all lungs. A regular rate and rhythm with a diastolic murmur. And abdomen is hugely obese, soft, with normal bowel sounds. Legs with mild edema. She is alert, oriented, has purposeful movement and is using her hands to adjust the mask. Adjust the bed sheets. Can feed herself very quickly when we take off the mask. Is alert and oriented person place and time. Greater than 30 minutes was spent coordinating discharge. This document was made in part using voice recognition software. While efforts are made to proofread this document, sound alike and grammatical errors may occur. - ALLERGIES Allergies/Adverse Reactions: Allergies Allergy/AdvReac Type Severity Reaction Status Date / Time No Known Drug Allergies Allergy Verified 01/21/21 18:49 - MEDICATIONS Home Medications: Ambulatory Orders Medication Instructions Recorded Confirmed Furosemide [Lasix] 20 mg PO DAILY 08/08/14 01/22/21 Metformin HCl [Metformin HCl ER] 1,000 mg PO BID 08/08/14 01/22/21 Carvedilol [Coreg] 25 mg PO BID 08/09/14 01/22/21 DULoxetine [Cymbalta] 20 mg PO DAILY 08/09/14 01/22/21 Potassium Chloride 10 meq PO DAILY 08/09/14 01/22/21 Atorvastatin [Lipitor] 40 mg PO DAILY 11/23/15 03/08/21 Insulin Aspart [Novolog] 15 unit SQ AC 10/09/15 01/22/21 Topiramate 50 mg PO BID 10/09/15 01/22/21 Amlodipine Besylate [Norvasc] 10 mg PO DAILY 01/22/21 01/22/21 Insulin Glargine,Hum.rec.anlog 100 unit SUBQ QPM 01/22/21 01/22/21 [Suzanneaglbell Patterson U-100] Levothyroxine [Synthroid] 25 mcg PO DAILY 01/22/21 01/22/21 Losartan Potassium [Cozaar] 100 mg PO DAILY 01/22/21 01/22/21 - LABS Result Diagrams: 01/22/21 04:55 01/22/21 04:55 - SEPSIS Possible source of Sepsis: Genitourinary"
== END 2021-01-22 15:30 | disposition short-term general hospital (02) | DRG 189 ==
LOC: ED 16:29 → MS2 18:02 → ICU 21:15
PROVIDERS: ADMIT Specialist; ATTEND Specialist
DX: J96.22 Acute and chronic respiratory failure with hypercapnia (principal); J18.9 Pneumonia, unspecified organism; I50.9 Heart failure, unspecified; E11.9 Type 2 diabetes mellitus without complications; E78.00 Pure hypercholesterolemia, unspecified; J96.01 Acute respiratory failure with hypoxia; I50.30 Unspecified diastolic (congestive) heart failure; Z86.73 Personal history of transient ischemic attack (TIA), and cerebral infarction without residual deficits; N17.9 Acute kidney failure, unspecified; Z68.41 Body mass index [BMI] 40.0-44.9, adult; I69.354 Hemiplegia and hemiparesis following cerebral infarction affecting left non-dominant side; E66.2 Morbid (severe) obesity with alveolar hypoventilation; E87.2 Acidosis; I11.0 Hypertensive heart disease with heart failure; J96.21 Acute and chronic respiratory failure with hypoxia; E03.9 Hypothyroidism, unspecified; I69.320 Aphasia following cerebral infarction; K21.9 Gastro-esophageal reflux disease without esophagitis; I27.20 Pulmonary hypertension, unspecified; I35.8 Other nonrheumatic aortic valve disorders; R94.31 Abnormal electrocardiogram [ECG] [EKG]; Z20.822 Contact with and (suspected) exposure to COVID-19; Z79.4 Long term (current) use of insulin; Z79.82 Long term (current) use of aspirin; Z79.899 Other long term (current) drug therapy; Z98.890 Other specified postprocedural states; Z87.891 Personal history of nicotine dependence
CPT/HCPCS: 36415; 36600; 71045; 80048; 80053; 82140; 82803; 83036; 83605; 83690; 83735; 83880; 84100; 84443; 84484; 85025; 85379; 87150; 87631; 93005; 93306; 94660; 99285; A9270; J1650; J1815; 0202U

== ENCOUNTER 2021-03-02 10:41 | Outpatient (CLI) | payer MEDICARE, MEDICAID ==
[2021-03-02 11:11] LABS: ALBUMIN 3.7 g/dL (3.2-5.5); ALBUMIN/GLOBULIN RATIO 1.2 (1.0-2.2); BILIRUBIN,TOTAL 0.5 mg/dL (0.2-1.0); CALCIUM 9.3 mg/dL (8.5-10.3); CREATININE 0.8 mg/dL (0.4-1.0); MAGNESIUM 1.2 mg/dL (1.7-2.8); POTASSIUM 3.9 mmol/L (3.5-5.0); TOTAL PROTEIN 6.9 g/dL (6.7-8.2)
== END 2021-03-02 10:42 | disposition home or self-care (01) ==
LOC: LAB 10:41
PROVIDERS: ATTEND Internal Medicine
DX: E87.6 Hypokalemia (principal)
CPT/HCPCS: 36415; 80053; 83735

== ENCOUNTER 2021-03-12 12:29 | Outpatient (CLI) | payer MEDICARE, MEDICAID ==
[2021-03-13 08:41] VITALS: BP 151/67
--- NOTE | 2021-03-13 08:41 | SLEEP CARE CONSULTATION ---
Information from patient questionnaire entered by Brittney Valencia. I have reviewed and concur with the information entered by Brittney Valencia. This document represents the service I personally performed and the decisions made by me, Wnada Enriquez MD, [facility]. History of Present Illness Service Date and Time: 03/12/2021 1229 Reason for Visit: New patient, Previously diagnosed sleep apnea (Severe - AHI - 44.7), sleep apnea on CPAP therapy (BiPap), Re-establish care (last seen 2008) Chief Complaint: reports: Snoring, Excessive daytime sleepiness, Observed pauses in breathing, Fatigue, Frequent awakenings at night Date of Onset: 15 years Usual bedtime: 11 pm Time it takes to fall asleep: fast Snores at night: Yes Observed to quit breathing while asleep: Yes Number of times waking at night: 4-5 without BiPap Reasons for waking at night: reports: Pain, Bathroom, Other (unknown reason) Toss, Turn, or Twitch while sleeping: Yes Recalls having dreams: Yes Usually gets out of bed at: 6 am Feels refreshed in the morning: No Morning headache: Yes Sleepy or fatigued during the day: Yes Ever fallen asleep while driving: No Takes day naps: Yes Dreams during day naps: No Prior sleep studies: Yes Year and Where: 2008 [facility] Sleep Type of Sleep Study: Polysomnography Additional HPI information: I had the pleasure of seeing Ms. Lamar today regarding obstructive sleep apnea-hypopnea. As you know, she is a 70 year old lady who was diagnosed with the sleep-disordered breathing here in 2008. The AHI was 44.7, and ranjeet oxygen saturation, 71%. She was prescribed a CPAP device. She has not returned for a follow up in the past 12 years. She is presently on her second CPAP, a ResMed [id number]. She is not sure of the setting. The memory card she brought has somebody else name on it. She said she did not use it until just 1 month ago. She bleeds oxygen through the CPAP at 2 L/minute. She wears a full face mask. She gets his supplies from [facility]. She finds the treatment very beneficial. - Parasomnia Symptoms Ever been unable to move upon waking from sleep: No Walks in sleep: No Talks in sleep: Yes Ever acted out dreams in sleep: No Ever felt weak in the knees when startled or emotional: No Bothered by creepy, crawly, restless sensations in legs: Yes Problems with memory or concentration: Yes Subjective Initial [place] Sleepiness Scale score: 5 (in 2009) Current [place] Sleepiness Scale score: 6 Past Medical History Past Medical History: reports: Hypertension, Diabetes, Depression, Other (stroke at 55) Social History The patient's occupation is a Retired. Patient is Single and lives in [place] . Have you smoked in the past 12 months: No Cigarettes per day (20/pack): 3 Years of smokin Quit date: 2005 Smoking Pack Years: 2.5 Alcohol use: No Caffeine use: Yes Caffeine amount and frequency: 1 cup occasionally Family History Family history of sleep disordered breathing: Yes Family Hx Sleep Apnea: Father: Snoring, Sibling: Snoring, Sleep apnea - Treated Allergies and Home Medications Drug allergies reviewed: Yes Home medication list reviewed: Yes Review of Systems Weight gain over past 5 years: 70 Cardiovascular: reports: high blood pressure Respiratory: reports: shortness of breath Gastrointestinal: denies: heartburn, difficulty swallowing, nausea, vomitting, diarrhea, abdominal pain, other Urinary: denies: incontinence, frequency, urgency, impotence, other Neurological: denies: headaches, seizure, head trauma, disorientation, speech dysfunction, gait or balance problems, fainting or unconsciousness, other Psychiatric: denies: Attention Deficit Hyperactivity, anxiety, depression, mood disorder, claustrophobia, other Ear/Nose/Throat: denies: nasal congestion, sinus problems, nose bleeds, dry mouth/throat, hoarseness, injury to nose, tonsillectomy, wisdom teeth removed, other Endocrine: denies: thyroid disease, history of goiter, sluggishness, too hot or cold, excessive thirst, increased appetite, increased urination, unexplained weakness, other Musculoskeletal: reports: joint pain, joint swelling Immunologic: reports: allergies to food or environment (pineapple) Physical Exam Vital signs obtained and entered by: Dr. Enriquez Blood Pressure: 151/67 Heart Rate: 60 O2 Saturation: 96 (on 2 L/min of oxygen) Height: 5 ft 4 in Weight: 247 lb Body Mass Index: 42.4 BMI Classification: Morbidly Obese Neck circumference: 18 Mood/affect: normal Impression and Plan IMPRESSION: 1. Obstructive Sleep Apnea-Hypopnea Syndrome, severe, with the patient just returning to use her CPAP again. It is unclear when and how she got her present machine. According to Mike, she is still on her first machine from 2008. The patient plans to keep using the CPAP regularly. Plan: 1. Continue with CPAP at the same setting. 2. Bring in her machine and the memory card next month. If this machine is older than 5 years, I will order her a new one. 3. Try to lose weight. Counseling Topics: Weight control Visit Type: In Office Time Spent with Patient (minutes): 15 Provider Statement: I spent 100% of the Face to Face Visit with the patient with greater than 50% spent counseling the patient and coordination of care.
== END 2021-03-12 12:30 | disposition home or self-care (01) ==
LOC: SC 12:29
PROVIDERS: ATTEND Internal Medicine Pulmonary Disease
DX: G47.33 Obstructive sleep apnea (adult) (pediatric) (principal); E66.01 Morbid (severe) obesity due to excess calories; Z68.41 Body mass index [BMI] 40.0-44.9, adult; Z87.891 Personal history of nicotine dependence
CPT/HCPCS: 99202; G0463; 99212

== ENCOUNTER 2021-04-03 08:17 | Outpatient (CLI) | payer MEDICARE, MEDICAID | END 2021-04-03 08:18 | disposition home or self-care (01) | LOC: LAB 08:17 | PROVIDERS: ATTEND Internal Medicine | DX: Z53.9 Procedure and treatment not carried out, unspecified reason (principal); E83.42 Hypomagnesemia | CPT/HCPCS: 80053; 83735 ==

== ENCOUNTER 2021-04-23 12:34 | Outpatient (CLI) | payer MEDICARE, MEDICAID ==
--- NOTE | 2021-04-23 16:50 | SLEEP CARE CONSULTATION ---
Information from patient questionnaire entered by Brittney Valencia. I have reviewed and concur with the information entered by Brittney Valencia. This document represents the service I personally performed and the decisions made by me, Wanda Enriquez MD, [facility]. History of Present Illness Service Date and Time: 04/23/2021 1234 Previous diagnosis: Severe, Obstructive Sleep Apnea-Hypopnea Syndrome AHI: 44.7 (in 2008) Reason for follow up: one month Equipment type: BiPAP Equipment obtained from: [employer] Mask style: Full face Prior sleep studies: Yes Year and Where: 2008 - [facility] Sleep Type of Sleep Study: Polysomnography HPI additional information: HPI: Ms. Lamar returned today for follow up of nasal CPAP therapy. She was diagnosed to have severe obstructive sleep apnea-hypopnea syndrome. The patient recently acquired a new BiPAP from [facility]. She reports using the device nightly and all through the night. The > 4 hour compliance rate for the past 30 days is 87%. She complained of no particular problem with the device such as soreness on the face, dry nose, epistaxis, nasal congestion or headache. She thinks that the pressure of 12/7 cmH2O is comfortable. On the BiPAP therapy she notices improvement in her sleep quality, and that she wakes up feeling fresher in the morning and more awake/alert during the day. The [place] Sleepiness Scale score 5. The average residual AHI is 4.4. CPAP Compliance Data - Data Reviewed with Patient Average duration of nightly device use: 7 hr 39 min Compliance rate %: 87 Current pressure setting (cmH2O): 12/7 Humidity settin Average residual AHI: 4.4 Subjective Current pressure setting perceived as: comfortable Initial [place] Sleepiness Scale score: 5 (in 2008) Current [place] Sleepiness Scale score: 5 Allergies and Home Medications Drug allergies reviewed: Yes Home medication list reviewed: Yes Review of Systems Review of systems same as previous: Yes Physical Exam Height: 5 ft 4 in Weight: 247 lb Body Mass Index: 42.4 BMI Classification: Morbidly Obese Impression and Plan IMPRESSION: 1. Obstructive Sleep Apnea-Hypopnea Syndrome, severe, with the patient using a new BiPAP ordered by [facility]. The machine is slightly used and has the previous patients name on it. [facility]. The current pressure setting appears effective and comfortable. Plan: 1. Continue BiPAP at the current setting. 2. Try to lose weight. 3. Return for follow up in a year or earlier if there is any problem. Follow up recommended for: Weight management Visit Type: In Office Time Spent with Patient (minutes): 15 Provider Statement: I spent 100% of the Face to Face Visit with the patient with greater than 50% spent counseling the patient and coordination of care.
== END 2021-04-23 12:35 | disposition home or self-care (01) ==
LOC: SC 12:34
PROVIDERS: ATTEND Internal Medicine Pulmonary Disease
DX: G47.33 Obstructive sleep apnea (adult) (pediatric) (principal); E66.01 Morbid (severe) obesity due to excess calories; Z68.41 Body mass index [BMI] 40.0-44.9, adult
CPT/HCPCS: 99212; G0463

== ENCOUNTER 2021-05-11 14:01 | Outpatient (CLI) | payer MEDICARE, MEDICAID | END 2021-05-11 14:02 | disposition home or self-care (01) | LOC: LAB 14:01 | PROVIDERS: ATTEND Internal Medicine | DX: E83.42 Hypomagnesemia (principal) | CPT/HCPCS: 36415; 83735 ==

== ENCOUNTER 2021-05-31 15:13 | Outpatient (CLI) | payer MEDICARE, MEDICAID | END 2021-05-31 15:14 | disposition home or self-care (01) | LOC: LAB 15:13 | PROVIDERS: ATTEND Internal Medicine | DX: E83.42 Hypomagnesemia (principal) | CPT/HCPCS: 36415; 83735 ==

== ENCOUNTER 2021-07-04 11:30 | Outpatient (CLI) | payer MEDICARE, MEDICAID ==
--- NOTE | 2021-07-04 12:29 | SLEEP CARE CONSULTATION ---
Information from patient questionnaire entered by Brittney Valencia. I have reviewed and concur with the information entered by Brittney Valencia. This document represents the service I personally performed and the decisions made by , Radha Whitehead ARNP. History of Present Illness Service Date and Time: 07/04/2021 1130 Previous diagnosis: Severe, Obstructive Sleep Apnea-Hypopnea Syndrome AHI: 44.7 (in 2008) Reason for follow up: first compliance after device update Equipment type: BiPAP Equipment obtained from: [employer] (getting supplies as needed) Mask style: Full face Backup mask available: Yes (old mask) Last cushion change: today Prior sleep studies: Yes Year and Where: 2008 - [facility] Sleep Type of Sleep Study: Polysomnography HPI additional information: SANDI STAPLETON was diagnosed to have severe, AHI 44.7, obstructive sleep apnea- hypopnea syndrome and returned today for BIPAP therapy first compliance after updating device follow-up. CPAP Compliance Data - Data Reviewed with Patient Average duration of nightly device use: 7 hr 32 min Compliance rate %: 93 Current pressure setting (cmH2O): 12/ Humidity settin Average residual AHI: 5.5 Central apnea: 0.6 Obstructive apnea: 3.2 Subjective Missed days of use due to: reports: travel Patient concerns: reports: air blowing in eyes (will be changing mask tonight; mask cushion is broken down). denies: aerophagia, mask discomfort, mask leak noise, condensation in mask/hose, nasal congestion, dry mouth, nose, throat, epistaxis, other Observed to snore while using device: No Current pressure setting perceived as: comfortable On therapy, patient: reports: sleeping better, awakening more refreshed, being more awake and alert during the day, more rested overall. denies: drowsiness while driving Initial [place] Sleepiness Scale score: 5 (in 2009) Current [place] Sleepiness Scale score: 2 Allergies and Home Medications Home medication list reviewed: Yes (magnesium) Review of Systems Review of systems same as previous: No (carbon monoxide poisoning 3 months ago, recovered) Physical Exam Heart Rate: 58 O2 Saturation: 98 Height: 5 ft 4 in Weight: 258 lb Body Mass Index: 44.2 BMI Classification: Morbidly Obese Impression and Plan 1. Obstructive Sleep Apnea-Hypopnea Syndrome, severe, with good treatment compliance and fair apnea control with minimal elevation of residual AHI. On BIPAP therapy, the patient has better sleep quality and is more rested overall. Patient is very satisfied with her CPAP therapy and thinks the pressure setting is comfortable. Patient's apnea severity and rationale for treatment to reduce apnea, improve sleep quality and reduce cardiovascular and cerebrovascular events was reviewed. I also reviewed the benefit of consistent device use of BIPAP for hypertension, cardiac disease (1 stent), diabetes, and depression. Patient uses 2 L oxygen at night through her BIPAP. Patient was encouraged to try to lose weight. Patient states she tries to cosme a lot of walking. * Continue auto BIPAP pressure at 12/7 cmH2O * Notify me if snoring with mask or feeling that the pressure is too much or too little * Attempt to lose weight * Call this office if any problems using BIPAP * Return for follow up in 1 year, or sooner if concerns arise Counseling Topics: Spare mask, Weight loss health impact Visit Type: In Office Time Spent with Patient (minutes): 22 Provider Statement: I spent 100% of the Face to Face Visit with the patient with greater than 50% spent counseling the patient and coordination of care.
== END 2021-07-04 11:31 | disposition home or self-care (01) ==
LOC: SC 11:30
PROVIDERS: ATTEND Nurse Practitioner Family
DX: G47.33 Obstructive sleep apnea (adult) (pediatric) (principal); E66.01 Morbid (severe) obesity due to excess calories; Z68.41 Body mass index [BMI] 40.0-44.9, adult
CPT/HCPCS: 99213; G0463; 99212

== ENCOUNTER 2021-08-02 12:12 | Outpatient (CLI) | payer MEDICARE, MEDICAID ==
[2021-08-02 12:27] LABS: BASOPHILS # (AUTO) 0.1 10^3/uL (0.0-0.1); BASOPHILS % (AUTO) 0.6 %; EOSINOPHILS # (AUTO) 0.1 10^3/uL (0.0-0.7); EOSINOPHILS % (AUTO) 1.6 %; HCT - HEMATOCRIT 39.9 % (37.0-47.0); HGB - HEMOGLOBIN 13.2 g/dL (12.0-16.0); LYMPHOCYTES # (AUTO) 1.4 10^3/uL (1.5-3.5); LYMPHOCYTES % (AUTO) 15.8 %; MEAN CORPUSCULAR HEMOGLOBIN 29.3 pg (27.0-31.0); MEAN CORPUSCULAR HGB CONC 33.1 g/dL (32.0-36.0); MEAN CORPUSCULAR VOLUME 88.5 fL (81.0-99.0); MEAN PLATELET VOLUME 9.5 fL (7.9-10.8); MONOCYTES # (AUTO) 0.4 10^3/uL (0.0-1.0); MONOCYTES % (AUTO) 4.7 %; NEUTROPHILS # (AUTO) 6.7 10^3/uL (1.5-6.6); PLT - PLATELET COUNT 193 10^3/uL (130-450); RED BLOOD COUNT 4.51 10^6/uL (4.20-5.40); RED CELL DISTRIBUTION WIDTH 13.9 % (12.0-15.0); WHITE BLOOD COUNT 8.7 x10^3/uL (4.8-10.8)
[2021-08-02 12:40] LABS: ALBUMIN 4.2 g/dL (3.2-5.5); ALBUMIN/GLOBULIN RATIO 1.3 (1.0-2.2); BILIRUBIN,TOTAL 0.7 mg/dL (0.2-1.0); CALCIUM 9.5 mg/dL (8.5-10.3); CREATININE 1.2 mg/dL (0.4-1.0); MAGNESIUM 1.7 mg/dL (1.7-2.8); POTASSIUM 4.1 mmol/L (3.5-5.0); TOTAL PROTEIN 7.5 g/dL (6.7-8.2)
[2021-08-02 13:10] LABS: ESTIMATED AVERAGE GLUCOSE 157 mg/dL (70-100); HEMOGLOBIN A1c% 7.1 % (4.27-6.07)
== END 2021-08-02 12:13 | disposition home or self-care (01) ==
LOC: LAB 12:12
PROVIDERS: ATTEND Internal Medicine
DX: E87.6 Hypokalemia (principal); E11.9 Type 2 diabetes mellitus without complications; E83.42 Hypomagnesemia; I10 Essential (primary) hypertension
CPT/HCPCS: 36415; 80053; 83036; 83735; 85025

== ENCOUNTER 2022-01-29 08:09 | Outpatient (CLI) | payer MEDICARE, MEDICAID ==
[2022-01-29 08:32] LABS: BASOPHILS % (AUTO) 0.5 %; EOSINOPHILS # (AUTO) 0.2 10^3/uL (0.0-0.7); EOSINOPHILS % (AUTO) 2.2 %; HCT - HEMATOCRIT 36.8 % (37.0-47.0); HGB - HEMOGLOBIN 12.7 g/dL (12.0-16.0); LYMPHOCYTES # (AUTO) 1.5 10^3/uL (1.5-3.5); LYMPHOCYTES % (AUTO) 20.9 %; MEAN CORPUSCULAR HGB CONC 34.5 g/dL (32.0-36.0); MEAN PLATELET VOLUME 9.6 fL (7.9-10.8); MONOCYTES # (AUTO) 0.4 10^3/uL (0.0-1.0); MONOCYTES % (AUTO) 5.3 %; NEUTROPHILS # (AUTO) 5.2 10^3/uL (1.5-6.6); NEUTROPHILS % (AUTO) 70.7 %; PLT - PLATELET COUNT 172 10^3/uL (130-450); RED BLOOD COUNT 4.23 10^6/uL (4.20-5.40); RED CELL DISTRIBUTION WIDTH 13.3 % (12.0-15.0); WHITE BLOOD COUNT 7.4 x10^3/uL (4.8-10.8)
[2022-01-29 08:45] LABS: ALBUMIN 3.6 g/dL (3.2-5.5); ALBUMIN/GLOBULIN RATIO 1.1 (1.0-2.2); BILIRUBIN,TOTAL 0.5 mg/dL (0.2-1.0); CALCIUM 9.1 mg/dL (8.5-10.3); MAGNESIUM 1.5 mg/dL (1.7-2.8); POTASSIUM 3.9 mmol/L (3.5-5.0); TOTAL PROTEIN 6.9 g/dL (6.7-8.2)
[2022-01-29 09:02] LABS: THYROID STIMULATING HORMONE 1.71 uIU/mL (0.34-5.60)
[2022-01-29 12:57] LABS: ESTIMATED AVERAGE GLUCOSE 183 mg/dL (70-100)
== END 2022-01-29 08:10 | disposition home or self-care (01) ==
LOC: LAB 08:09
PROVIDERS: ATTEND Internal Medicine
DX: I10 Essential (primary) hypertension (principal); E83.42 Hypomagnesemia; E11.9 Type 2 diabetes mellitus without complications
CPT/HCPCS: 36415; 80053; 83036; 83735; 84443; 85025

== ENCOUNTER 2022-08-06 10:29 | Inpatient (IN) | payer MEDICARE, MEDICAID ==
[2022-08-06 11:07] LABS: BASOPHILS # (AUTO) 0.1 10^3/uL (0.0-0.1); BASOPHILS % (AUTO) 0.7 %; EOSINOPHILS # (AUTO) 0.3 10^3/uL (0.0-0.7); EOSINOPHILS % (AUTO) 4.4 %; HCT - HEMATOCRIT 36.1 % (37.0-47.0); LYMPHOCYTES # (AUTO) 1.1 10^3/uL (1.5-3.5); MEAN CORPUSCULAR HEMOGLOBIN 29.5 pg (27.0-31.0); MEAN CORPUSCULAR HGB CONC 33.2 g/dL (32.0-36.0); MEAN CORPUSCULAR VOLUME 88.7 fL (81.0-99.0); MEAN PLATELET VOLUME 9.5 fL (7.9-10.8); MONOCYTES # (AUTO) 0.3 10^3/uL (0.0-1.0); MONOCYTES % (AUTO) 3.9 %; NEUTROPHILS # (AUTO) 5.2 10^3/uL (1.5-6.6); NEUTROPHILS % (AUTO) 74.6 %; PLT - PLATELET COUNT 165 10^3/uL (130-450); RED BLOOD COUNT 4.07 10^6/uL (4.20-5.40)
--- NOTE | 2022-08-06 11:15 | XRAY Report ---
PROCEDURE: Chest 1 View X-Ray INDICATIONS: cough dyspnea TECHNIQUE: One view of the chest was acquired. COMPARISON: 01/22/2021 FINDINGS: Cardiomegaly with pulmonary vascular congestion and mild interstitial edema. No pleural eff usion. IMPRESSION: Cardiomegaly with [id number] cardiogenic pulmonary edema. Reviewed by: Irwin Velarde MD on 08/06/2022 11:14 AM PDT Approved by: Irwin Velarde MD on 08/06/2022 11:14 AM PDT Station ID: [id number]
[2022-08-06 11:19] LABS: ALBUMIN 3.9 g/dL (3.2-5.5); ALBUMIN/GLOBULIN RATIO 1.2 (1.0-2.2); BILIRUBIN,TOTAL 0.6 mg/dL (0.2-1.0); CALCIUM 9.1 mg/dL (8.5-10.3); CREATININE 1.2 mg/dL (0.4-1.0); MAGNESIUM 1.8 mg/dL (1.7-2.8); POTASSIUM 3.9 mmol/L (3.5-5.0); TOTAL PROTEIN 7.1 g/dL (6.7-8.2)
[2022-08-06] MEDS ORDERED: BENZONATATE 100 MG CAPSULE PO STA ×2 (11:20→17:11)
[2022-08-06] MEDS ORDERED: guaiFENesin/CODEINE 5 ML UDC PO STA ×2 (11:20→17:11)
--- NOTE | 2022-08-06 11:24 | ED Physician Documentation ---
PD HPI DYSPNEA - Stated complaint Stated Complaint: SOA - Chief complaint Chief Complaint: Resp - History obtained from History obtained from: Patient, Family - Additional information Additional information: 72-year-old woman with history of obstructive sleep apnea on CPAP at night, CHF, stroke, hypertension, PFO status postclosure, type 2 diabetes on insulin. She presents with her daughter for 15 pound weight gain, shortness of breath and productive cough for the last week or so with pedal edema that is worsening. Cough is productive of garza sputum. She denies fevers or chills. No chest pain but she notes itching in her chest. She notes orthopnea and has been sleeping in a recliner for the last couple of days. Review of Systems Ten Systems: 10 systems reviewed and negative Constitutional: denies: Fever, Chills Cardiac: reports: Pedal edema. denies: Chest pain / pressure, Palpitations, Calf pain Respiratory: reports: Dyspnea, Cough. denies: Hemoptysis, Wheezing PD PAST MEDICAL HISTORY - Past Medical History Past Medical History: Yes Cardiovascular: Hypertension, High cholesterol Respiratory: Sleep apnea, CPAP use Neuro: CVA, Peripheral neuropathy Endocrine/Autoimmune: Type 2 diabetes, HyPOthyroidism GI: GERD AUTOMATIC PACKER OPERATOR: Ovarian cysts : Incontinence HEENT: None Psych: Depression, Anxiety Musculoskeletal: Other Derm: None - Past Surgical History Past Surgical History: Yes General: Other /AUTOMATIC PACKER OPERATOR: Hysterectomy Cardiovascular: Other - Present Medications Home Medications: Ambulatory Orders Medication Instructions Recorded Confirmed Furosemide [Lasix] 20 mg PO DAILY 08/08/14 08/06/22 Metformin HCl [Metformin HCl ER] 500 mg PO BID 08/08/14 08/06/22 Carvedilol [Coreg] 25 mg PO BID 08/09/14 08/06/22 DULoxetine [Cymbalta] 20 mg PO DAILY 08/09/14 08/06/22 Potassium Chloride 10 meq PO DAILY 08/09/14 08/06/22 Atorvastatin [Lipitor] 40 mg PO HS 10/09/15 08/06/22 Insulin Aspart [Novolog] 25 unit SQ TIDWM 10/09/15 08/06/22 Topiramate 50 mg PO BID 10/09/15 08/06/22 Amlodipine Besylate [Norvasc] 10 mg PO DAILY 01/22/21 08/06/22 Insulin Glargine,Hum.rec.anlog 50 unit SUBQ QPM 01/22/21 08/06/22 [Basaglar Kwikpen U-100] Levothyroxine [Synthroid] 25 mcg PO DAILY 01/22/21 08/06/22 Losartan Potassium [Cozaar] 100 mg PO DAILY 01/22/21 08/06/22 Cholecalciferol (Vitamin D3) 1,000 unit PO DAILY 03/12/21 08/06/22 [Vitamin D3] Magnesium Oxide [Magnesium] 400 mg PO BID 03/12/21 08/06/22 [place]-3/Dha/Epa/Fish Oil [Fish Oil 1 each PO DAILY 03/12/21 08/06/22 1,000 mg Softgel] Aspirin EC [Ecotrin] 81 mg PO DAILY 08/06/22 08/06/22 - Allergies Allergies/Adverse Reactions: Allergies Allergy/AdvReac Type Severity Reaction Status Date / Time No Known Drug Allergies Allergy Verified 01/21/21 18:49 - Social History Does the pt smoke?: No Smoking Status: Former smoker Does the pt drink ETOH?: No Does the pt have substance abuse?: No - Immunizations Immunizations are current?: Yes PD ED PE NORMAL - Vitals Vital signs reviewed: Yes - General General: Alert and oriented X 3, No acute distress - HEENT HEENT: PERRL, EOMI - Neck Neck: Supple, no meningeal sign, No bony TTP - Cardiac Cardiac: RRR, No murmur - Respiratory Respiratory: No respiratory distress, Other (Diminished breath sounds throughout, exam limited by body habitus, speaking full sentences and nonl abored) - Abdomen Abdomen: Non tender - Back Back: No CVA TTP, No spinal TTP - Derm Derm: Normal color, Warm and dry - Extremities Extremities: Other (3+ pitting pedal edema to the knees, symmetric) - Neuro Neuro: Alert and oriented X 3, Normal speech Results - Vitals Vitals: Vital Signs - 24 hr 08/06/22 08/06/22 08/06/22 10:40 11:15 13:00 Temperature 37.8 C Heart Rate 62 60 51 L Respiratory 18 22 12 Rate Blood Pressure 144/56 H 129/53 L 134/61 H O2 Saturation 97 94 92 If not protocol 2 : Oxygen Flow, liters/minute 08/06/22 14:24 Temperature Heart Rate Respiratory Rate Blood Pressure O2 Saturation 88 L If not protocol : Oxygen Flow, liters/minute Oxygen O2 Source Room air - EKG (time done) 1041 Rate: Rate (enter#) (62) Rhythm: NSR (With frequent PVCs and PACs) [place]: Normal Intervals: Prolonged UT, RBBB Ischemia: Q waves (Small inferior Q waves). No: ST elevation c/w ischemia, ST depression - Labs Labs: Laboratory Tests 08/06/22 08/06/22 08/06/22 10:51 10:54 10:54 WBC 7.0 RBC 4.07 L Hgb 12.0 Hct 36.1 L MCV 88.7 MCH 29.5 MCHC 33.2 RDW 14.0 Plt Count 165 MPV 9.5 Neut # (Auto) 5.2 Lymph # (Auto) 1.1 L [place] # (Auto) 0.3 Eos # (Auto) 0.3 Baso # (Auto) 0.1 Absolute Nucleated RBC 0.00 Nucleated RBC % 0.0 Sodium 142 Potassium 3.9 Chloride 107 Carbon Dioxide 24 Anion Gap 11.0 BUN 17 Creatinine 1.2 H Estimated GFR (MDRD) 44 L Glucose 130 H POC Whole Bld Glucose Calcium 9.1 Magnesium 1.8 Total Bilirubin 0.6 AST 15 ALT 12 Alkaline Phosphatase 75 B-Natriuretic Peptide Total Protein 7.1 Albumin 3.9 Globulin 3.2 Albumin/Globulin Ratio 1.2 Nasal Adenovirus (PCR) NOT DETECTED Nasal B. parapertussis DNA (PCR) NOT DETECTED Nasal Coronavir 229E PCR NOT DETECTED Nasal Coronavir HKU1 PCR NOT DETECTED Nasal Coronavir NL63 PCR NOT DETECTED Nasal Coronavir OC43 PCR NOT DETECTED Nasal Enterovir/Rhinovir PCR NOT DETECTED Nasal Influenza B PCR NOT DETECTED Nasal Influenza A PCR NOT DETECTED Nasal Parainfluen 1 PCR NOT DETECTED Nasal Parainfluen 2 PCR NOT DETECTED Nasal Parainfluen 3 PCR NOT DETECTED Nasal Parainfluen 4 PCR NOT DETECTED Nasal RSV (PCR) NOT DETECTED Nasal B.pertussis DNA PCR NOT DETECTED Nasal C.pneumoniae (PCR) NOT DETECTED Sin Human Metapneumo PCR NOT DETECTED Nasal M.pneumoniae (PCR) NOT DETECTED Nasal SARS-CoV-2 (PCR) NOT DETECTED 08/06/22 08/06/22 10:54 15:26 WBC RBC Hgb Hct MCV MCH MCHC RDW Plt Count MPV Neut # (Auto) Lymph # (Auto) [place] # (Auto) Eos # (Auto) Baso # (Auto) Absolute Nucleated RBC Nucleated RBC % Sodium Potassium Chloride Carbon Dioxide Anion Gap BUN Creatinine Estimated GFR (MDRD) Glucose POC Whole Bld Glucose 33 L* Calcium Magnesium Total Bilirubin AST ALT Alkaline Phosphatase B-Natriuretic Peptide 274 H Total Protein Albumin Globulin Albumin/Globulin Ratio Nasal Adenovirus (PCR) Nasal B. parapertussis DNA (PCR) Nasal Coronavir 229E PCR Nasal Coronavir HKU1 PCR Nasal Coronavir NL63 PCR Nasal Coronavir OC43 PCR Nasal Enterovir/Rhinovir PCR Nasal Influenza B PCR Nasal Influenza A PCR Nasal Parainfluen 1 PCR Nasal Parainfluen 2 PCR Nasal Parainfluen 3 PCR Nasal Parainfluen 4 PCR Nasal RSV (PCR) Nasal B.pertussis DNA PCR Nasal C.pneumoniae (PCR) Sin Human Metapneumo PCR Nasal M.pneumoniae (PCR) Nasal SARS-CoV-2 (PCR) - Rads (name of study) Single view chest x-ray shows cardiomegaly and mild to moderate cardiogenic pulmonary edema Radiology: EMP read contemporaneously PD MEDICAL DECISION MAKING - ED course ED course: This is a 72-year-old woman who presents for symptomatic CHF exacerbation with modest anasarca and known weight gain and now orthopnea. CXR shows pulmonary edema. Other work-up inconsequential. She was given 40 mg of Lasix IV and allowed to diurese her a bit here but on subsequent testing she developed hypoxemia at 88% at rest and failed to walk tested due to the hypoxemia. Spoke with Dr. Velasco for admission at 2:35 PM. I had ordered a blood sugar and was notified by the RN at 330 that it was in the 30s, amp of D50 was ordered. - Critical Care Time(min): 35 Time Includes: Direct patient care, Review records, Reassess patient, Document care, Coordinate care, Medical consult, Family consult for tx dec Data interpretation: Labs, Pulse ox Procedures included in critical care time: Peripheral IV Procedures excluded from critical care time: EKG Departure - Departure Disposition: 66 [facility] DC/Xfer Clinical Impression: Acute respiratory failure with hypoxia, Congestive heart failure, Hypoglycemia Condition: Serious
[2022-08-06] MEDS: FUROSEMIDE 40 MG/4 ML VIAL IVP STA ×2 (12:04→12:18)
[2022-08-06 12:40] LABS: B. PARAPERTUSSIS- RESP PCR PAN NOT DETECTED; B. PERTUSSIS- RESP PCR PANEL NOT DETECTED; C. PNEUMONIAE- RESP PCR PANEL NOT DETECTED; CORONAVIRUS 229E-RESP PCR NOT DETECTED; CORONAVIRUS HKU1-RESP PCR NOT DETECTED; CORONAVIRUS NL63-RESP PCR NOT DETECTED; CORONAVIRUS OC43-RESP PCR NOT DETECTED; HUMAN METAPNEUMOVIRUS NOT DETECTED; INFLUENZA A- RESP PCR PANEL NOT DETECTED; INFLUENZA B - RESP PCR PANEL NOT DETECTED; M. PNEUMONIAE- RESP PCR PANEL NOT DETECTED; PARAINFLUENZA VIRUS 1 NOT DETECTED; PARAINFLUENZA VIRUS 2 NOT DETECTED; PARAINFLUENZA VIRUS 3 NOT DETECTED; PARAINFLUENZA VIRUS 4 NOT DETECTED; RHINOVIRUS/ENTEROVIRUS NOT DETECTED; RSV- RESP PCR PANEL NOT DETECTED; SARS-CoV-2 -RESP PCR PANEL NOT DETECTED
[2022-08-06] MEDS ORDERED: DEXTROSE 50% ABBOJECT 25 GM/50 ML SYRINGE IVP STA (15:30)
[2022-08-06] MEDS ORDERED: SODIUM CHLORIDE FLUSH 0.9% 10 ML SYRINGE IVP PRN (18:27)
[2022-08-06] MEDS ORDERED: ONDANSETRON 4 MG/2 ML VIAL IVP PRN (18:27)
[2022-08-06] MEDS ORDERED: ACETAMINOPHEN 325 MG TABLET PO PRN (18:27)
--- NOTE | 2022-08-06 20:35 | HISTORY & PHYSICAL EXAMINATION ---
Chief Complaint - Chief Complaint Chief Complaint: Shortness of breath History of Present Illness - History of Present Illness HPI Comment/Other: 72 y old female with PMH HTN, DM type 2, Hyperlipidemia, Hypothyroidism, CHF, Obesity, BLOSSOM on CPAP at night, on home oxygen 2L [place], Stroke came with c/o shortness of breath, cough with expectoration of yellowish coloured sputum and B/L leg edema for 1 week.As per pt, she has gained about 15 lbs in last few weeks.Denies chest pain, fever, RAMÍREZ, Nausea, vomiting, diarrhea, constipation, symptoms. 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 Her father in his 70s from either esophageal or gastric cancer. Living Situation: Alone Social History Notes: She reports a remote history of smoking but quit over 30 years ago. She will have occasional alcohol use. She lives at home alone. Meds/Allgy - Home Medications Home Medications: Ambulatory Orders Medication Instructions Recorded Confirmed Furosemide [Lasix] 20 mg PO DAILY 08/08/14 08/06/22 Metformin HCl [Metformin HCl ER] 500 mg PO BID 08/08/14 08/06/22 Carvedilol [Coreg] 25 mg PO BID 08/09/14 08/06/22 DULoxetine [Cymbalta] 20 mg PO DAILY 08/09/14 08/06/22 Potassium Chloride 10 meq PO DAILY 08/09/14 08/06/22 Atorvastatin [Lipitor] 40 mg PO HS 10/09/15 08/06/22 Insulin Aspart [Novolog] 25 unit SQ TIDWM 10/09/15 08/06/22 Topiramate 50 mg PO BID 10/09/15 08/06/22 Amlodipine Besylate [Norvasc] 10 mg PO DAILY 01/22/21 08/06/22 Insulin Glargine,Hum.rec.anlog 50 unit SUBQ QPM 01/22/21 08/06/22 [Basaglar Kwikpen U-100] Levothyroxine [Synthroid] 25 mcg PO DAILY 01/22/21 08/06/22 Losartan Potassium [Cozaar] 100 mg PO DAILY 01/22/21 08/06/22 Cholecalciferol (Vitamin D3) 1,000 unit PO DAILY 03/12/21 08/06/22 [Vitamin D3] Magnesium Oxide [Magnesium] 400 mg PO BID 03/12/21 08/06/22 [place]-3/Dha/Epa/Fish Oil [Fish Oil 1 each PO DAILY 03/12/21 08/06/22 1,000 mg Softgel] Aspirin EC [Ecotrin] 81 mg PO DAILY 08/06/22 08/06/22 - Allergies Allergies/Adverse Reactions: Allergies Allergy/AdvReac Type Severity Reaction Status Date / Time No Known Drug Allergies Allergy Verified 01/21/21 18:49 Review of Systems - Constitutional Constitutional: reports: Weight gain - Cardiovascular Cariovascular: reports: Edema, Orthopnea - Respiratory Respiratory: reports: Cough, Sputum production, Orthopnea, SOB at rest, SOB with exertion - Other Findings Other Findings: 12 point systems were reviewed and were negative except mentioned in HPI Exam - Vital Signs Vital Signs: Vital Signs x48h Pulse Resp BP Pulse Ox O2 Flow Rate 08/06/22 20:00 61 15 170/80 H 96 2 08/06/22 18:00 60 17 138/83 H 97 08/06/22 16:00 60 18 142/73 H 98 2 08/06/22 14:24 88 L 08/06/22 13:00 51 L 12 134/61 H 92 2 - Physical Exam General Appearance: positive: Mild distress Eyes Bilateral: positive: PERRL ENT: positive: ENT inspection nml Neck: positive: Nml inspection Respiratory: positive: Rales Cardiovascular: positive: Regular rate & rhythm Peripheral Pulses: positive: 2+ Abdomen: positive: Non-tender, No organomegaly, Nml bowel sounds, No distention Skin: positive: No rash Extremities: positive: Pedal edema Neurologic/Psychiatric: positive: Oriented x3, Motor nml Conclusion/Plan - Lab Results Fish Bones: 08/06/22 10:54 08/06/22 10:54 - Diagnostic Imaging Results Diagnostic Imaging Results: positive: Final report reviewed - Other Other Results/Comments: A: Acute on chronic CHF exacerbation, unspecified, EF unknown Pulmonary edema Leg edema HTN DM 2 Hypoglycemia s/p D50 HLP Obesity BLOSSOM on CPAP Hypothyroidism H/O CVA Plan: Admit in tele Get Echo Start lasix 40 mg iv q12h Cont coreg 25 mg po bid Cont losartan 100 mg po qd Monitor I/O, electrolytes Repeat CBC, BMP, mag level in am Cont amlodipine Hold lantus Stat sliding scale inssulin Cont aspirin and lipitor Cpap at night Cont levothyroxin Duo neb q6h DVT prophylaxic: Heparin sq Full code Pt will be ad mitted as inpatient as more than 2 midnight stay is expected
[2022-08-06] MEDS ORDERED: IPRATROPIUM/ALBUTEROL 3 ML NEB INH PRN (20:57)
[2022-08-06] MEDS: INSULIN LISPRO 300 UNIT/3 ML PEN SUBQ SCH (21:31)
[2022-08-06] MEDS: HEPARIN 5,000 UNIT/ML VIAL SUBQ SCH (21:38)
[2022-08-06] MEDS: carvediloL 12.5 MG TABLET PO SCH (21:39)
[2022-08-06] MEDS: FUROSEMIDE 40 MG/4 ML VIAL IVP SCH (21:39)
[2022-08-06] MEDS: guaiFENesin/CODEINE 5 ML UDC PO PRN (23:52)
[2022-08-06] MEDS: SODIUM CHLORIDE FLUSH 0.9% 10 ML SYRINGE IVP SCH (23:53)
[2022-08-07] MEDS: BENZOCAINE/MENTHOL LOZENGE MM PRN ×6 (03:17→20:58)
[2022-08-07] MEDS: guaiFENesin/CODEINE 5 ML UDC PO PRN ×3 (06:26→18:24)
[2022-08-07] MEDS: LEVOTHYROXINE 25 MCG TABLET PO SCH (06:26)
--- NOTE | 2022-08-07 07:46 | PROVIDER PROGRESS NOTE ---
Assessment/Plan - Problem List (1) Acute respiratory failure with hypoxia Assessment/Plan: Her oxygen desaturation is likely due to pulmonary edema seen on chest x-ray. She is already on home O2, ordered by her PCP, according to the daughter at bedside today. We are treating this with IV diuretics. Tapering )2 down to room air keeping sats greater than 90%, is planned. She will have an oximetry walk test on the day of discharge to see if the home oxygen order needs to be changed. 2) CHF exacerbation The daughter, Shelia, who is an RN, is at the bedside and helps the patient give me history. The patient was seen by her health informatics advisor Dr. Rojelio Cheng at about 10 months ago. There is no prior history of CHF according to the daughter, despite what our EMR says. But the daughter does not know what work-up she has had for her heart in the last 1 to 2 years. The patient is on IV twice daily Lasix and has had a 1.3 L negative fluid balance since admission. We will continue this. Follow daily weights. Follow BMP daily. Follow electrolytes and magnesium daily, correct these if low would like today. Echo ordered, results are pending today. 3) Acute Bronchitis Patient reports that all her symptoms began with nasal congestion and a productive unremitting cough about a week ago. She took Motrin for the malaise and Robitussin and Tessalon Perles for the cough. She did not have a chest x- ray done. She is still coughing incessantly today as a meet her for the first time. Her daughter and is at bedside and tells me that this cough was even worse 1 week ago. Will order sputum culture and if white cells are seen then will order empiric antibiotic (Zithromax). I suspect the patient started getting leg edema because of new right heart failure caused by the bronchitis on top of chronic BLOSSOM, in a patient with probable pulmonary hypertension. Echo result pending from today. 4) DM Type 2 As per Hx. An A1c was not ordered by the admitting Telemedicine Dr. Continue with fingerstick checks, assess insulin for coverage and adjusting her Lantus dose due to hypoglycemia (see #5) 5) Hypoglycemia Resolved. Glucose dropped very low while in the ED yesterday afternoon, because she got no lunch while in the ED. Continue with a hypoglycemia protocol ordered and fingerstick checks before meals and at bedtime while here 6) HTN We are continuing her usual home medications while here. Of note, amlodipine at 10 mg may be adding to her leg edema. 7) BLOSSOM on CPAP The ER got the story that she was not compliant with her CPAP but in fact she is very compliant with her CPAP except was not wearing it the last 3 nights while she was orthopneic when she was using her nasal cannula oxygen those 3 nights Will order use of her home CPAP device while she is here. 8) Morbid obesity, BMI 45-49 As per Hx. 9) Hypothyroidism As per history. TSH ordered to check if adequate replacement. Her home dose of Synthroid ordered 10) Hx of Amplatzer ASD closure As per Hx. On her last Echo, done January 2021, the atrial septum was intact and the occluder device was visible 11) Hx of CVA She has minimal residual L lower extrem hemiplegia, per records - Current Meds Current Meds: Current Medications Generic Name Dose Route Start Last Admin Trade Name Freq PRN Reason Stop Dose Admin Carvedilol 25 mg 08/06/22 21:00 08/06/22 21:39 Carvedilol 12.5 Mg Tablet PO 25 mg BID LUANN Administration Furosemide 40 mg 08/06/22 21:00 08/06/22 21:39 Furosemide 40 Mg/4 Ml Vial IVP 40 mg Q12H LUANN Administration Guaifenesin/Codeine Phosphate 5 ml 08/06/22 21:04 08/07/22 06:26 Guaifenesin/Codeine 5 Ml Udc PO 5 ml Q6H PRN Administration Cough Heparin Sodium (Porcine) 5,000 unit 08/06/22 21:00 08/06/22 21:38 Heparin 5,000 Unit/Ml Vial SUBQ 5,000 unit BID LUANN Administration Insulin Human Lispro 1 - 9 unit 08/06/22 21:00 08/06/22 21:31 Insulin Lispro 300 Unit/3 Ml Pen SUBQ Not Given 0800,1200,1700,2100 [facility] Protocol Levothyroxine Sodium 25 mcg 08/07/22 06:00 08/07/22 06:26 Levothyroxine 25 Mcg Tablet PO 25 mcg 0600 LUANN Administration Sodium Chloride 10 ml 08/06/22 18:27 08/06/22 21:39 Sodium Chloride Flush 0.9% 10 Ml Syringe IVP 10 ml PRN PRN Administration NEEDED PER PROVIDER ORDERS Sodium Chloride 10 ml 08/07/22 01:00 08/06/22 23:53 Sodium Chloride Flush 0.9% 10 Ml Syringe IVP 10 ml 0100,0900,1700 LUANN Administration Throat Lozenges 1 lozenge 08/07/22 02:42 08/07/22 06:26 Benzocaine/Menthol Lozenge MM 1 lozenge Q2HR PRN Administration Throat pain - Lab Result Fish Bone Diagrams: 08/06/22 10:54 08/07/22 07:46 - Additional Planning My Orders: My Active Orders 08/06/22 Dinner Carb-controlled Diet [DIET] 08/06/22 18:27 Activity Orders [RC] Q2HR IO [RC] IOSHIFT Initiate Bowel Care Protocol [RC] .protocol Initiate Line Care Protocol [RC] QSHIFT Initiate Personal Care Protoco [RC] .protocol Oxygen Therapy [RC] .PRN Telemetry- [RC] Q4HR Vital Signs [RC] Q4HR Acetaminophen [Tylenol] 650 mg PO Q4HR PRN Ondansetron Inj [Zofran Inj] 4 mg IVP Q6HR PRN Sodium Chloride Flush 0.9% [Normal Saline Flush 0.9%] 10 ml IVP PRN PRN Condition of Patient [OTHERS] Routine DVT Prophylaxis [OTHERS] Routine 08/06/22 18:29 Daily Weight [RC] 0600 08/06/22 21:00 Heparin [Heparin Sodium (Porcine)] 5,000 unit SUBQ BID 08/07/22 BMP - BASIC METABOLIC PANEL [CHEM] Urgent BNP - B-NATRIURETIC PEPTIDE [IAI] Urgent MAGNESIUM [CHEM] Urgent 08/07/22 01:00 Sodium Chloride Flush 0.9% [Normal Saline Flush 0.9%] 10 ml IVP 0100,0900,1700 08/07/22 02:42 Benzocaine/Menthol [Cepacol] 1 lozenge MM Q2HR PRN 08/07/22 07:00 Echo Transthoracic Complete [ECHO] Routine 08/07/22 09:00 amLODIPine [Norvasc] 10 mg PO DAILY 08/08/22 05:00 BMP - BASIC METABOLIC PANEL [CHEM] DAILYLAB BNP - B-NATRIURETIC PEPTIDE [IAI] DAILYLAB MAGNESIUM [CHEM] DAILYLAB 08/09/22 05:00 BMP - BASIC METABOLIC PANEL [CHEM] DAILYLAB BNP - B-NATRIURETIC PEPTIDE [IAI] DAILYLAB 08/10/22 05:00 BMP - BASIC METABOLIC PANEL [CHEM] DAILYLAB BNP - B-NATRIURETIC PEPTIDE [IAI] DAILYLAB Subjective - Subjective Patient Reports: Cough (Yellow sputum for 1 week. Chest wall hurts from coughing so much for a week.), Shortness of Breath Objective Vital Signs: Vital Signs - 24 hr 08/06/22 08/06/22 08/06/22 10:40 11:15 13:00 Temperature 37.8 C Heart Rate 62 60 51 L Heart Rate [ Brachial] Respiratory 18 22 12 Rate Blood Pressure 144/56 H 129/53 L 134/61 H Blood Pressure [Right Brachial artery] O2 Saturation 97 94 92 If not protocol 2 : Oxygen Flow, liters/minute 08/06/22 08/06/22 08/06/22 14:24 16:00 18:00 Temperature Heart Rate 60 60 Heart Rate [ Brachial] Respiratory 18 17 Rate Blood Pressure 142/73 H 138/83 H Blood Pressure [Right Brachial artery] O2 Saturation 88 L 98 97 If not protocol 2 : Oxygen Flow, liters/minute 08/06/22 08/06/22 08/06/22 20:00 20:47 20:54 Temperature 36.3 C L Heart Rate 61 Heart Rate [ 60 Brachial] Respiratory 15 19 Rate Blood Pressure 170/80 H Blood Pressure 141/49 H [Right Brachial artery] O2 Saturation 96 94 If not protocol 2 2 2 : Oxygen Flow, liters/minute 08/07/22 08/07/22 08/07/22 00:01 05:00 07:14 Temperature 36.6 C 36.6 C Heart Rate Heart Rate [ 67 62 Brachial] Respiratory 16 16 Rate Blood Pressure Blood Pressure 154/90 H 151/56 H [Right Brachial artery] O2 Saturation 96 93 If not protocol 2 2 2 : Oxygen Flow, liters/minute 08/07/22 07:18 Temperature 36.6 C Heart Rate Heart Rate [ 65 Brachial] Respiratory 18 Rate Blood Pressure Blood Pressure 146/59 H [Right Brachial artery] O2 Saturation 96 If not protocol 2 : Oxygen Flow, liters/minute Oxygen O2 Source Nasal cannula I&O (Last 24 Hrs): Intake and Output Totals x24h 08/05/22 08/06/22 08/07/22 23:59 23:59 23:59 Output Total 1200 Balance -1200 General: Alert, No acute distress, Other (Morbid ly obese, appears tired, is cioughing non-stop, has sputum production) HEENT: Mucous membr. moist/pink Neck: Supple, Other (Morbidly obese and cannot eval JVP) Neuro: Alert, Non Focal Cardiovascular: Regular rate, No murmurs (Very distant heart sounds due to morbid obesity) Respiratory: Rales (up 1/2 bilat, no wheezing) Abdomen: Normal bowel sounds, Soft, Other (Obese with pannus) Extremities: No tenderness/swelling, Other (2+ edema to mid shins) - Results Results: Laboratory Results WBC 7.0 x10^3/uL (4.8-10.8) 08/06/22 10:54 RBC 4.07 10^6/uL (4.20-5.40) L 08/06/22 10:54 Hgb 12.0 g/dL (12.0-16.0) 08/06/22 10:54 Hct 36.1 % (37.0-47.0) L 08/06/22 10:54 MCV 88.7 fL (81.0-99.0) 08/06/22 10:54 MCH 29.5 pg (27.0-31.0) 08/06/22 10:54 MCHC 33.2 g/dL (32.0-36.0) 08/06/22 10:54 RDW 14.0 % (12.0-15.0) 08/06/22 10:54 Plt Count 165 10^3/uL (130-450) 08/06/22 10:54 MPV 9.5 fL (7.9-10.8) 08/06/22 10:54 Neut # (Auto) 5.2 10^3/uL (1.5-6.6) 08/06/22 10:54 Lymph # (Auto) 1.1 10^3/uL (1.5-3.5) L 08/06/22 10:54 [place] # (Auto) 0.3 10^3/uL (0.0-1.0) 08/06/22 10:54 Eos # (Auto) 0.3 10^3/uL (0.0-0.7) 08/06/22 10:54 Baso # (Auto) 0.1 10^3/uL (0.0-0.1) 08/06/22 10:54 Absolute Nucleated RBC 0.00 x10^3/uL 08/06/22 10:54 Nucleated RBC % 0.0 /100WBC 08/06/22 10:54 Sodium 142 mmol/L (135-145) 08/06/22 10:54 Potassium 3.9 mmol/L (3.5-5.0) 08/06/22 10:54 Chloride 107 mmol/L (101-111) 08/06/22 10:54 Carbon Dioxide 24 mmol/L (21-32) 08/06/22 10:54 Anion Gap 11.0 (6-13) 08/06/22 10:54 BUN 17 mg/dL (6-20) 08/06/22 10:54 Creatinine 1.2 mg/dL (0.4-1.0) H 08/06/22 10:54 Estimated GFR (MDRD) 44 (>89) L 08/06/22 10:54 Glucose 130 mg/dL (70-100) H 08/06/22 10:54 POC Whole Bld Glucose 158 mg/dL (70 - 100) H 08/07/22 07:17 Calcium 9.1 mg/dL (8.5-10.3) 08/06/22 10:54 Magnesium 1.8 mg/dL (1.7-2.8) 08/06/22 10:54 Total Bilirubin 0.6 mg/dL (0.2-1.0) 08/06/22 10:54 AST 15 IU/L (10-42) 08/06/22 10:54 ALT 12 IU/L (10-60) 08/06/22 10:54 Alkaline Phosphatase 75 IU/L (42-121) 08/06/22 10:54 B-Natriuretic Peptide 274 pg/mL (5-100) H 08/06/22 10:54 Total Protein 7.1 g/dL (6.7-8.2) 08/06/22 10:54 Albumin 3.9 g/dL (3.2-5.5) 08/06/22 10:54 Globulin 3.2 g/dL (2.1-4.2) 08/06/22 10:54 Albumin/Globulin Ratio 1.2 (1.0-2.2) 08/06/22 10:54 Nasal Adenovirus (PCR) NOT DETECTED 08/06/22 10:51 Nasal B. parapertussis DNA (PCR) NOT DETECTED 08/06/22 10:51 Nasal Coronavir 229E PCR NOT DETECTED 08/06/22 10:51 Nasal Coronavir HKU1 PCR NOT DETECTED 08/06/22 10:51 Nasal Coronavir NL63 PCR NOT DETECTED 08/06/22 10:51 Nasal Coronavir OC43 PCR NOT DETECTED 08/06/22 10:51 Nasal Enterovir/Rhinovir PCR NOT DETECTED 08/06/22 10:51 Nasal Influenza B PCR NOT DETECTED 08/06/22 10:51 Nasal Influenza A PCR NOT DETECTED 08/06/22 10:51 Nasal Parainfluen 1 PCR NOT DETECTED 08/06/22 10:51 Nasal Parainfluen 2 PCR NOT DETECTED 08/06/22 10:51 Nasal Parainfluen 3 PCR NOT DETECTED 08/06/22 10:51 Nasal Parainfluen 4 PCR NOT DETECTED 08/06/22 10:51 Nasal RSV (PCR) NOT DETECTED 08/06/22 10:51 Nasal B.pertussis DNA PCR NOT DETECTED 08/06/22 10:51 Nasal C.pneumoniae (PCR) NOT DETECTED 08/06/22 10:51 Sin Human Metapneumo PCR NOT DETECTED 08/06/22 10:51 Nasal M.pneumoniae (PCR) NOT DETECTED 08/06/22 10:51 Nasal SARS-CoV-2 (PCR) NOT DETECTED 08/06/22 10:51
[2022-08-07 08:12] LABS: CALCIUM 9.4 mg/dL (8.5-10.3); CREATININE 1.1 mg/dL (0.4-1.0); MAGNESIUM 1.6 mg/dL (1.7-2.8); POTASSIUM 3.8 mmol/L (3.5-5.0)
[2022-08-07] MEDS: INSULIN LISPRO 300 UNIT/3 ML PEN SUBQ SCH ×4 (08:13→20:58)
[2022-08-07] MEDS: FUROSEMIDE 40 MG/4 ML VIAL IVP SCH ×2 (08:14→20:57)
[2022-08-07] MEDS: SODIUM CHLORIDE FLUSH 0.9% 10 ML SYRINGE IVP SCH ×2 (08:14→17:19)
[2022-08-07] MEDS: carvediloL 12.5 MG TABLET PO SCH ×2 (08:14→20:57)
[2022-08-07] MEDS: HEPARIN 5,000 UNIT/ML VIAL SUBQ SCH ×2 (08:14→21:04)
[2022-08-07] MEDS: LOSARTAN 50 MG TABLET PO SCH (08:14)
[2022-08-07] MEDS: ASPIRIN CHEW 81 MG TABLET PO SCH (08:14)
[2022-08-07] MEDS: amLODIPine 5 MG TABLET PO SCH (08:16)
[2022-08-07] MEDS ORDERED: ATORVASTATIN 40 MG TABLET PO SCH (09:00)
[2022-08-07] MEDS ORDERED: amLODIPine 5 MG TABLET PO SCH (09:00)
[2022-08-07] MEDS: MAGNESIUM OXIDE 400 MG TABLET PO SCH (11:34)
--- NOTE | 2022-08-07 11:52 | PHARMACY PROGRESS NOTE ---
- Best Possible Medication History Admit Date and Time: 08/06/22 182 Processed by: Pharmacy Medication History completed: Yes Patient Interview: Completed Secondary Source(s): Insurance records As the person ultimately responsible for medication therapy, providers are able to order a medication from an existing home medication list in [facility] via the "Reconcile Routine" prior to Confirmation of that medication by application support. Such practice is discouraged except when the physician, in their clinical judgment, deems that a medical need exists for a medication without regard to previous use.
[2022-08-07] MEDS ORDERED: AZITHROMYCIN 250 MG TABLET PO STA (13:11)
[2022-08-07] MEDS: BENZONATATE 100 MG CAPSULE PO PRN ×2 (14:44→20:58)
[2022-08-08] MEDS: BENZOCAINE/MENTHOL LOZENGE MM PRN ×5 (00:11→20:41)
[2022-08-08] MEDS: guaiFENesin 100 MG/5 ML UDC PO PRN ×5 (00:11→18:07)
[2022-08-08] MEDS: SODIUM CHLORIDE FLUSH 0.9% 10 ML SYRINGE IVP SCH ×4 (00:12→23:27)
[2022-08-08] MEDS: BENZONATATE 100 MG CAPSULE PO PRN ×2 (05:14→15:05)
[2022-08-08] MEDS: LEVOTHYROXINE 25 MCG TABLET PO SCH (05:14)
[2022-08-08 06:29] LABS: CALCIUM 8.8 mg/dL (8.5-10.3); CREATININE 1.2 mg/dL (0.4-1.0); MAGNESIUM 1.7 mg/dL (1.7-2.8); POTASSIUM 3.8 mmol/L (3.5-5.0)
[2022-08-08] MEDS ORDERED: INSULIN LISPRO 300 UNIT/3 ML PEN SUBQ SCH (08:00)
[2022-08-08] MEDS: ASPIRIN CHEW 81 MG TABLET PO SCH (08:27)
[2022-08-08] MEDS: LOSARTAN 50 MG TABLET PO SCH (08:27)
[2022-08-08] MEDS: MAGNESIUM OXIDE 400 MG TABLET PO SCH (08:27)
[2022-08-08] MEDS: AZITHROMYCIN 250 MG TABLET PO SCH (08:27)
[2022-08-08] MEDS: amLODIPine 5 MG TABLET PO SCH (08:27)
[2022-08-08] MEDS: carvediloL 12.5 MG TABLET PO SCH ×2 (08:27→20:44)
[2022-08-08] MEDS: HEPARIN 5,000 UNIT/ML VIAL SUBQ SCH ×2 (08:28→20:44)
[2022-08-08] MEDS ORDERED: FUROSEMIDE 40 MG TABLET PO SCH (09:00)
--- NOTE | 2022-08-08 09:13 | PROVIDER PROGRESS NOTE ---
Assessment/Plan - Problem List (1) Acute and chronic respiratory failure with hypoxia Assessment/Plan: Today it was learned that she is on home O2 constantly at 2L, and has 2L bled into her BIPAP at hs. Her worsened oxygen desaturation was likely due to pulmonary edema seen on chest x-ray plus bronchitis. She was already on home O2, ordered by her PCP, according to the daughter. We are treating her with IV diuretics and antibx. Plan on tapering O2 down to room air keeping sats greater than 90% She will have an oximetry walk test on the day of discharge to see if the home oxygen order needs to be changed. 2) Acute on chronic diastolic heart failure The daughter, Shelia, who is an RN, was at the bedside and helped the patient give me history yesterday. The patient was seen by her commercial sales director Dr. Rojelio Cheng at about 10 months ago. There is no prior history of CHF according to the daughter, despite what our EMR says. But the daughter does not know what work- up she has had for her heart in the last 1 to 2 years. Echo done here showed normal LVEF, dilated RV with reduced function. The daughter was updated today The patient is on IV twice daily Lasix and has had some negative fluid balance since admission. Because BUN/creat ratio increased, will change to po daily Lasix starting tomorrow. I suspect she still has 5 lbs of fluid, in her tense leg edema, to diurese off Following daily weights. Following electrolytes and magnesium daily, correct these if low 3) Acute Bronchitis Patient reports that all her symptoms began with nasal congestion and a productive unremitting cough about a week ago. She took Motrin for the malaise and Robitussin and Tessalon Perles for the cough. She did not have a chest x- ray done. She is still coughing incessantly today as a meet her for the first time. Her daughter and is at bedside and tells me that this cough was even worse 1 week ago. We ordered sputum culture and then started empiric antibiotic (Zithromax). I suspect the patient started getting leg edema because of right heart failure caused by this bronchitis on top of having chronic BLOSSOM, in a patient with possible pulmonary hypertension. 4) Cor pulmonale Echo was done and showed normal LVEF, dilated RV with reduced function. I suspect the patient started getting leg edema because of right heart failure caused by this bronchitis on top of chronic BLOSSOM, in a patient with probable pulmonary hypertension. Continue diuretics and pulmonary management. I suspect she has 5 lbs of fluid in her tense leg edema to diurese off The daughter was updated today 5) BLOSSOM on CPAP The ER got the story that she was not compliant with her CPAP. But in fact she is very compliant with her home BIPAP unit, which has 2L continuously bled in, except she was not wearing it the last 3 nights before admission, while she was orthopneic. This is when she was using her nasal cannula oxygen only on those 3 nights We have ordered use of her home BIPAP device while she is here and daughter brought it in today. Pt wants a sleeping aid, will order Benadryl 6) DM Type 2 As per Hx. An A1c came back at 6.9, indicating good glu control. Will resume her Novolog Insulin with meals and Basaglar Insulin in pm. Continue with fingerstick checks, assess for ss coverage and adjusting her Lantus doses, ordered hypoglycemia protocol (see #5) 7) HTN We are continuing her usual home medications while here. Of note, amlodipine at 10 mg may be adding to her leg edema and I will decrease kt to 5 mg now and for DCh 8) Morbid obesity, BMI 45-49 As per Hx. 9) Hypothyroidism As per history. TSH level is in an acceptable range. Her home dose of Synthroid ordered 10) Hx of Amplatzer ASD closure As per Hx. On her last Echo, done January 2021, the atrial septum was intact and the occluder device was visible. Similar on Echo done this admission 11) Hx of CVA She had minimal residual L lower extremity hemiplegia, per records, after suffering foot drop and dysarthria and dysphagia and needing a PEG tube for 6 mos. 12) Hypoglycemia Resolved. Glucose dropped very low while in the ED on afternoon of admission, because she got no lunch while in the ED. Continue with a hypoglycemia protocol, ordered and fingerstick checks before me als and at bedtime while here - Current Meds Current Meds: Current Medications Generic Name Dose Route Start Last Admin Trade Name Freq PRN Reason Stop Dose Admin Amlodipine Besylate 10 mg 08/07/22 09:00 08/08/22 08:27 Amlodipine 5 Mg Tablet PO 10 mg DAILY LUANN Administration Aspirin 81 mg 08/07/22 09:00 08/08/22 08:27 Aspirin Chew 81 Mg Tablet PO 81 mg DAILY LUANN Administration Atorvastatin Calcium 40 mg 08/07/22 09:00 08/07/22 08:14 Atorvastatin 40 Mg Tablet PO 40 mg DAILY LUANN Administration Azithromycin 250 mg 08/08/22 09:00 08/08/22 08:27 Azithromycin 250 Mg Tablet PO 08/12/22 00:01 250 mg DAILY LUANN Administration Benzonatate 200 mg 08/07/22 13:52 08/08/22 05:14 Benzonatate 100 Mg Capsule PO 200 mg TID PRN Administration Cough Carvedilol 25 mg 08/06/22 21:00 08/08/22 08:27 Carvedilol 12.5 Mg Tablet PO 25 mg BID LUANN Administration Guaifenesin 200 mg 08/07/22 13:51 08/08/22 05:14 Guaifenesin 100 Mg/5 Ml Udc PO 200 mg Q4H PRN Administration Cough Heparin Sodium (Porcine) 5,000 unit 08/06/22 21:00 08/08/22 08:28 Heparin 5,000 Unit/Ml Vial SUBQ 5,000 unit BID LUANN Administration Insulin Human Lispro 2 - 10 unit 08/08/22 08:00 08/08/22 08:26 Insulin Lispro 300 Unit/3 Ml Pen SUBQ 4 unit 0800,1200,1700,2100 LUANN Administration Protocol Levothyroxine Sodium 25 mcg 08/07/22 06:00 08/08/22 05:14 Levothyroxine 25 Mcg Tablet PO 25 mcg 0600 LUANN Administration Losartan Potassium 100 mg 08/07/22 09:00 08/08/22 08:27 Losartan 50 Mg Tablet PO 100 mg DAILY LUANN Administration Magnesium Oxide 400 mg 08/07/22 12:00 08/08/22 08:27 Magnesium Oxide 400 Mg Tablet PO 400 mg DAILYWM LUANN Administration Sodium Chloride 10 ml 08/06/22 18:27 08/06/22 21:39 Sodium Chloride Flush 0.9% 10 Ml Syringe IVP 10 ml PRN PRN Administration NEEDED PER PROVIDER ORDERS Sodium Chloride 10 ml 08/07/22 01:00 08/08/22 08:43 Sodium Chloride Flush 0.9% 10 Ml Syringe IVP 10 ml 0100,0900,1700 LUANN Administration Throat Lozenges 1 lozenge 08/07/22 02:42 08/08/22 05:14 Benzocaine/Menthol Lozenge MM 1 lozenge Q2HR PRN Administration Throat pain - Lab Result Fish Bone Diagrams: 08/06/22 10:54 08/08/22 06:09 - Additional Planning My Orders: My Active Orders 08/07/22 09:00 amLODIPine [Norvasc] 10 mg PO DAILY 08/07/22 12:00 Magnesium Oxide [Mag Ox] 400 mg PO DAILYWM 08/07/22 12:15 CUL, RESPIRATORY [RM] Stat 08/07/22 13:51 guaiFENesin LIQUID [Robitussin Liquid] 200 mg PO Q4H PRN 08/07/22 13:52 Benzonatate [Tessalon] 200 mg PO TID PRN 08/08/22 06:09 HEMOGLOBIN A1c% [CHEM] DAILYLAB 08/08/22 08:00 Insulin Lispro [Humalog Kwikpen U-100] 2 - 10 unit SUBQ 0800,1200,1700,2100 08/08/22 09:00 Azithromycin [Zithromax] 250 mg PO DAILY Furosemide [Lasix] 40 mg PO DAILY 08/09/22 05:00 BMP - BASIC METABOLIC PANEL [CHEM] DAILYLAB BNP - B-NATRIURETIC PEPTIDE [IAI] DAILYLAB 08/10/22 05:00 BMP - BASIC METABOLIC PANEL [CHEM] DAILYLAB BNP - B-NATRIURETIC PEPTIDE [IAI] DAILYLAB Subjective - Subjective Patient Reports: Fatigue (from poor sleep), Shortness of Breath (improved and less coghing) Objective Vital Signs: Vital Signs - 24 hr 08/07/22 08/07/22 08/07/22 11:31 18:44 21:00 Temperature 36.7 C 36.5 C Heart Rate [ 98 67 Brachial] Respiratory 18 18 Rate Blood Pressure 135/56 H 152/67 H [Right Brachial artery] O2 Saturation 97 94 If not protocol 2 2 2 : Oxygen Flow, liters/minute 08/07/22 08/08/22 08/08/22 23:46 04:53 06:43 Temperature 37 C 36.5 C Heart Rate [ 59 L 59 L Brachial] Respiratory 14 14 Rate Blood Pressure 146/55 H 142/53 H [Right Brachial artery] O2 Saturation 98 92 If not protocol 2 2 2 : Oxygen Flow, liters/minute 08/08/22 07:42 Temperature 36.8 C Heart Rate [ 61 Brachial] Respiratory 18 Rate Blood Pressure 149/62 H [Right Brachial artery] O2 Saturation 95 If not protocol 2 : Oxygen Flow, liters/minute Oxygen O2 Source Nasal cannula I&O (Last 24 Hrs): Intake and Output Totals x24h 08/06/22 08/07/22 08/08/22 23:59 23:59 23:59 Intake Total 1660 200 Output Total 1700 650 Balance -40 -450 General: Alert, Oriented x3, Other (disheveled) HEENT: EOMI, Mucous membr. moist/pink, Other (wearing O2 per n.c.) Neck: Supple, Other (Obese and cannot eval JVP) Neuro: Alert, Non Focal Cardiovascular: Regular rate, No murmurs Respiratory: Breath sounds nml, Rhonchi (upper airway only) Abdomen: Soft, Other (obese with pannus) Extremities: Other (4+ tense edema to mid thighs) - Results Results: Laboratory Results WBC 7.0 x10^3/uL (4.8-10.8) 08/06/22 10:54 RBC 4.07 10^6/uL (4.20-5.40) L 08/06/22 10:54 Hgb 12.0 g/dL (12.0-16.0) 08/06/22 10:54 Hct 36.1 % (37.0-47.0) L 08/06/22 10:54 MCV 88.7 fL (81.0-99.0) 08/06/22 10:54 MCH 29.5 pg (27.0-31.0) 08/06/22 10:54 MCHC 33.2 g/dL (32.0-36.0) 08/06/22 10:54 RDW 14.0 % (12.0-15.0) 08/06/22 10:54 Plt Count 165 10^3/uL (130-450) 08/06/22 10:54 MPV 9.5 fL (7.9-10.8) 08/06/22 10:54 Neut # (Auto) 5.2 10^3/uL (1.5-6.6) 08/06/22 10:54 Lymph # (Auto) 1.1 10^3/uL (1.5-3.5) L 08/06/22 10:54 Schley # (Auto) 0.3 10^3/uL (0.0-1.0) 08/06/22 10:54 Eos # (Auto) 0.3 10^3/uL (0.0-0.7) 08/06/22 10:54 Baso # (Auto) 0.1 10^3/uL (0.0-0.1) 08/06/22 10:54 Absolute Nucleated RBC 0.00 x10^3/uL 08/06/22 10:54 Nucleated RBC % 0.0 /100WBC 08/06/22 10:54 Sodium 139 mmol/L (135-145) 08/08/22 06:09 Potassium 3.8 mmol/L (3.5-5.0) 08/08/22 06:09 Chloride 102 mmol/L (101-111) 08/08/22 06:09 Carbon Dioxide 30 mmol/L (21-32) 08/08/22 06:09 Anion Gap 7.0 (6-13) 08/08/22 06:09 BUN 24 mg/dL (6-20) H 08/08/22 06:09 Creatinine 1.2 mg/dL (0.4-1.0) H 08/08/22 06:09 Estimated GFR (MDRD) 44 (>89) L 08/08/22 06:09 Glucose 211 mg/dL (70-100) H 08/08/22 06:09 POC Whole Bld Glucose 198 mg/dL (70 - 100) H 08/08/22 07:36 Calcium 8.8 mg/dL (8.5-10.3) 08/08/22 06:09 Magnesium 1.7 mg/dL (1.7-2.8) 08/08/22 06:09 Total Bilirubin 0.6 mg/dL (0.2-1.0) 08/06/22 10:54 AST 15 IU/L (10-42) 08/06/22 10:54 ALT 12 IU/L (10-60) 08/06/22 10:54 Alkaline Phosphatase 75 IU/L (42-121) 08/06/22 10:54 B-Natriuretic Peptide 163 pg/mL (5-100) H 08/08/22 06:09 Total Protein 7.1 g/dL (6.7-8.2) 08/06/22 10:54 Albumin 3.9 g/dL (3.2-5.5) 08/06/22 10:54 Globulin 3.2 g/dL (2.1-4.2) 08/06/22 10:54 Albumin/Globulin Ratio 1.2 (1.0-2.2) 08/06/22 10:54 TSH 4.96 uIU/mL (0.34-5.60) 08/07/22 07:46 Nasal Adenovirus (PCR) NOT DETECTED 08/06/22 10:51 Nasal B. parapertussis DNA (PCR) NOT DETECTED 08/06/22 10:51 Nasal Coronavir 229E PCR NOT DETECTED 08/06/22 10:51 Nasal Coronavir HKU1 PCR NOT DETECTED 08/06/22 10:51 Nasal Coronavir NL63 PCR NOT DETECTED 08/06/22 10:51 Nasal Coronavir OC43 PCR NOT DETECTED 08/06/22 10:51 Nasal Enterovir/Rhinovir PCR NOT DETECTED 08/06/22 10:51 Nasal Influenza B PCR NOT DETECTED 08/06/22 10:51 Nasal Influenza A PCR NOT DETECTED 08/06/22 10:51 Nasal Parainfluen 1 PCR NOT DETECTED 08/06/22 10:51 Nasal Parainfluen 2 PCR NOT DETECTED 08/06/22 10:51 Nasal Parainfluen 3 PCR NOT DETECTED 08/06/22 10:51 Nasal Parainfluen 4 PCR NOT DETECTED 08/06/22 10:51 Nasal RSV (PCR) NOT DETECTED 08/06/22 10:51 Nasal B.pertussis DNA PCR NOT DETECTED 08/06/22 10:51 Nasal C.pneumoniae (PCR) NOT DETECTED 08/06/22 10:51 Sin Human Metapneumo PCR NOT DETECTED 08/06/22 10:51 Nasal M.pneumoniae (PCR) NOT DETECTED 08/06/22 10:51 Nasal SARS-CoV-2 (PCR) NOT DETECTED 08/06/22 10:51
[2022-08-08] MEDS: INSULIN LISPRO 300 UNIT/3 ML PEN SUBQ SCH ×3 (11:54→20:41)
[2022-08-08 12:53] LABS: ESTIMATED AVERAGE GLUCOSE 151 mg/dL (70-100); HEMOGLOBIN A1c% 6.9 % (4.27-6.07)
[2022-08-08] MEDS: FUROSEMIDE 40 MG TABLET PO SCH (15:05)
[2022-08-08] MEDS ORDERED: INSULIN ASPART 300 UNIT/3 ML PEN SUBQ SCH (17:00)
[2022-08-08] MEDS: ATORVASTATIN 40 MG TABLET PO SCH (20:41)
[2022-08-08] MEDS: diphenhydrAMINE 25 MG CAPSULE PO SCH (20:41)
[2022-08-08] MEDS ORDERED: INSULIN GLARGINE 300 UNIT/3 ML PEN SUBQ SCH (21:00)
[2022-08-08] MEDS: INSULIN GLARGINE-YFGN 300 UNIT/3 ML PEN SUBQ SCH (21:05)
[2022-08-09] MEDS: guaiFENesin 100 MG/5 ML UDC PO PRN (00:28)
[2022-08-09 05:07] LABS: CREATININE 1.2 mg/dL (0.4-1.0); POTASSIUM 3.9 mmol/L (3.5-5.0)
[2022-08-09] MEDS: LEVOTHYROXINE 25 MCG TABLET PO SCH (06:49)
[2022-08-09] MEDS: FUROSEMIDE 40 MG TABLET PO SCH ×2 (09:14→14:46)
[2022-08-09] MEDS: INSULIN LISPRO 300 UNIT/3 ML PEN SUBQ SCH ×6 (09:15→20:51)
[2022-08-09] MEDS: AZITHROMYCIN 250 MG TABLET PO SCH (09:16)
[2022-08-09] MEDS: amLODIPine 5 MG TABLET PO SCH (09:16)
[2022-08-09] MEDS: carvediloL 12.5 MG TABLET PO SCH ×2 (09:16→20:59)
[2022-08-09] MEDS: MAGNESIUM OXIDE 400 MG TABLET PO SCH (09:16)
[2022-08-09] MEDS: LOSARTAN 50 MG TABLET PO SCH (09:17)
[2022-08-09] MEDS: ASPIRIN CHEW 81 MG TABLET PO SCH (09:17)
[2022-08-09] MEDS: SODIUM CHLORIDE FLUSH 0.9% 10 ML SYRINGE IVP SCH ×2 (09:18→15:50)
[2022-08-09] MEDS: HEPARIN 5,000 UNIT/ML VIAL SUBQ SCH ×2 (09:23→20:59)
[2022-08-09] MEDS: BENZOCAINE/MENTHOL LOZENGE MM PRN ×3 (10:45→17:45)
--- NOTE | 2022-08-09 19:02 | PROVIDER PROGRESS NOTE ---
Assessment/Plan - Problem List (1) Acute and chronic respiratory failure with hypoxia Assessment/Plan: She is on home O2 constantly at 2L, and has 2L bled into her BIPAP at hs. Her worsened oxygen desaturation was likely due to pulmonary edema seen on chest x-ray plus bronchitis. We started treating her with IV diuretics and antibx. Plan on tapering O2 down to room air keeping sats greater than 90% She will have an oximetry walk test on the day of discharge to see if the home oxygen order needs to be changed. 2) Acute on chronic diastolic heart failure The daughter, Shelia, who is an RN, was at the bedside and helped the patient give me history. The patient was seen by her cook vegetable Dr. Rojelio Cheng at about 10 months ago. There is no prior history of CHF according to the daughter, despite what our EMR says. But the daughter does not know what work-up she has had for her heart in the last 1 to 2 years. Echo done here showed normal LVEF, dilated RV with reduced function. She has had only minimal negative fluid balance since admission and has still has 4+ tense edema of the legs up to her knees. It is noted that she has taken in greater than 2 L of fluids orally yesterday. IV Lasix has been changed to p.o. Lasix because of mild BUN/creatinine elevation. Will order a total fluid restriction of less than 2000 L cc per day. This was discussed with the patient. She revealed that she was told to drink 1-2 L of water plus other fluids during her day, by some MD in the past. Following daily weights. Following electrolytes and magnesium daily, correct these if low 3) KIM This began as she started IV Lasix. For this reason she is been switched over to p.o. Lasix. Avoid nephrotoxins. Follow BMP daily 4) Acute Bronchitis Patient reported that all her symptoms began with nasal congestion and a productive unremitting cough about a week ago. She took Motrin for the malaise and Robitussin and Tessalon Perles for the cough. We ordered sputum culture and then started empiric antibiotic (Zithromax). I suspect the patient started getting leg edema because of right heart failure caused by this bronchitis on top of having chronic BLOSSOM, in a patient with possible pulmonary hypertension. 5) Cor pulmonale Echo was done and showed normal LVEF, dilated RV with reduced function. I suspect the patient started getting leg edema because of right heart failure caused by this bronchitis on top of chronic BLOSSOM, in a patient with probable pulmonary hypertension. Continue diuretics and pulmonary management. I suspect she has 5 lbs of fluid in her tense leg edema to diurese off (6) BLOSSOM on CPAP The ER got the story that she was not compliant with her CPAP. But in fact she is very compliant with her home BIPAP unit, which has 2L continuously bled in, except she was not wearing it the last 3 nights before admission, while she was orthopneic. This is when she was using her nasal cannula oxygen only on those 3 nights We have ordered use of her home BIPAP device while she is here and daughter brought it in. Pt wanted a sleeping aid, will order Benadryl 7) DM Type 2 As per Hx. An A1c came back at 6.9, indicating good glu control. Will resume her Novolog Insulin with meals and Basaglar Insulin in pm. Will add Insulin 5U with meals. Continue with fingerstick checks, assess for ss coverage and adjusting her Lantus doses, ordered hypoglycemia protocol (see #5) 8) HTN We are continuing her usual home medications while here. Of note, amlodipine at 10 mg may be adding to her leg edema and I will decrease Amlodipine to 5 mg now and for DCh 9) Morbid obesity, BMI 45-49 As per Hx. 10) Hypothyroidism As per history. TSH level is in an acceptable range. Her home dose of Synthroid ordered 11) Hx of Amplatzer ASD closure As per Hx. On her last Echo, done January 2021, the atrial septum was intact and the occluder device was visible. Similar on Echo done this admission 12) Hx of CVA She had minimal residual L lower extremity hemiplegia, per records, after suffering foot drop and dysarthria and dysphagia and needing a PEG tube for 6 mos. 13) Hypoglycemia Resolved. Glucose dropped very low while in the ED on afternoon of admission, because she got no lunch while in the ED. Continue with a hypoglycemia protocol, ordered and fingerstick checks before meals and at bedtime while here - Current Meds Current Meds: Current Medications Generic Name Dose Route Start Last Admin Trade Name Freq PRN Reason Stop Dose Admin Amlodipine Besylate 5 mg 08/09/22 09:00 08/09/22 09:16 Amlodipine 5 Mg Tablet PO 5 mg DAILY LUANN Administration Aspirin 81 mg 08/07/22 09:00 08/09/22 09:17 Aspirin Chew 81 Mg Tablet PO 81 mg DAILY LUANN Administration Atorvastatin Calcium 40 mg 08/08/22 09:23 08/08/22 20:41 Atorvastatin 40 Mg Tablet PO 40 mg 2100 LUANN Administration Azithromycin 250 mg 08/08/22 09:00 08/09/22 09:16 Azithromycin 250 Mg Tablet PO 08/12/22 00:01 250 mg DAILY LUANN Administration Benzonatate 200 mg 08/07/22 13:52 08/08/22 15:05 Benzonatate 100 Mg Capsule PO 200 mg TID PRN Administration Cough Carvedilol 25 mg 08/06/22 21:00 08/09/22 09:16 Carvedilol 12.5 Mg Tablet PO 25 mg BID LUANN Administration Diphenhydramine HCl 25 mg 08/08/22 21:00 08/08/22 20:41 Diphenhydramine 25 Mg Capsule PO 25 mg QPM LUANN Administration Furosemide 40 mg 08/08/22 15:00 08/09/22 14:46 Furosemide 40 Mg Tablet PO 40 mg 0800,1500 LUANN Administration Guaifenesin 200 mg 08/07/22 13:51 08/09/22 00:28 Guaifenesin 100 Mg/5 Ml Udc PO 200 mg Q4H PRN Administration Cough Heparin Sodium (Porcine) 5,000 unit 08/06/22 21:00 08/09/22 09:23 Heparin 5,000 Unit/Ml Vial SUBQ 5,000 unit BID LUANN Administration Insulin Glargine-yfgn 20 unit 08/08/22 21:00 08/08/22 21:05 Insulin Glargine-Yfgn 300 Unit/3 Ml Pen SUBQ 20 unit QPM LUANN Administration Insulin Human Lispro 3 - 11 unit 08/08/22 12:00 08/09/22 16:54 Insulin Lispro 300 Unit/3 Ml Pen SUBQ 5 unit 0800,1200,1700,2100 LUANN Administration Protocol Insulin Human Lispro 5 unit 08/09/22 12:00 08/09/22 16:54 Insulin Lispro 300 Unit/3 Ml Pen SUBQ 5 unit TIDWM LUANN Administration Protocol Levothyroxine Sodium 25 mcg 08/07/22 06:00 08/09/22 06:49 Levothyroxine 25 Mcg Tablet PO 25 mcg 0600 LUANN Administration Losartan Potassium 100 mg 08/07/22 09:00 08/09/22 09:17 Losartan 50 Mg Tablet PO 100 mg DAILY LUANN Administration Magnesium Oxide 400 mg 08/07/22 12:00 08/09/22 09:16 Magnesium Oxide 400 Mg Tablet PO 400 mg DAILYWM LUANN Administration Sodium Chloride 10 ml 08/06/22 18:27 08/06/22 21:39 Sodium Chloride Flush 0.9% 10 Ml Syringe IVP 10 ml PRN PRN Administration NEEDED PER PROVIDER ORDERS Sodium Chloride 10 ml 08/07/22 01:00 08/09/22 15:50 Sodium Chloride Flush 0.9% 10 Ml Syringe IVP 10 ml 0100,0900,1700 LUANN Administration Throat Lozenges 1 lozenge 08/07/22 02:42 08/09/22 17:45 Benzocaine/Menthol Lozenge MM 1 lozenge Q2HR PRN Administration Throat pain - Lab Result Fish Bone Diagrams: 08/06/22 10:54 08/09/22 04:42 - Additional Planning My Orders: My Active Orders 08/08/22 21:00 Insulin Glargine-Yfgn [Semglee] 20 unit SUBQ QPM diphenhydrAMINE [Benadryl] 25 mg PO QPM 08/09/22 09:00 amLODIPine [Norvasc] 5 mg PO DAILY 08/09/22 12:00 Insulin Lispro [Humalog Kwikpen U-100] 5 unit SUBQ TIDWM 08/10/22 05:00 BMP - BASIC METABOLIC PANEL [CHEM] DAILYLAB BNP - B-NATRIURETIC PEPTIDE [IAI] DAILYLAB Subjective - Subjective Patient Reports: Feeling Better (Was able to take a shower, or her oxygen for this. Is less orthopneic, shortness of breath much better, cough slightly better, legs still very edematous) Objective Vital Signs: Vital Signs - 24 hr 08/08/22 08/08/22 08/08/22 20:44 20:59 23:15 Temperature 37.0 C 36.5 C Heart Rate [ 59 L 64 Brachial] Respiratory 16 18 Rate Blood Pressure 122/51 L [Left Radial artery] Blood Pressure 119/50 L [Right Brachial artery] O2 Saturation 99 95 If not protocol 2 2 : Oxygen Flow, liters/minute 08/08/22 08/09/22 08/09/22 23:26 07:34 09:00 Temperature 36.4 C L Heart Rate [ 54 L Brachial] Respiratory 17 Rate Blood Pressure [Left Radial artery] Blood Pressure 172/64 H [Right Brachial artery] O2 Saturation 96 If not protocol 2 2 : Oxygen Flow, liters/minute 08/09/22 08/09/22 08/09/22 09:10 11:34 15:49 Temperature 36.6 C 36.4 C L Heart Rate [ 65 63 59 L Brachial] Respiratory 16 20 Rate Blood Pressure 139/75 H [Left Radial artery] Blood Pressure 146/62 H [Right Brachial artery] O2 Saturation 95 94 If not protocol 2 2 : Oxygen Flow, liters/minute Oxygen O2 Source Nasal cannula I&O (Last 24 Hrs): Intake and Output Totals x24h 08/07/22 08/08/22 08/09/22 23:59 23:59 23:59 Intake Total 1660 2050 360 Output Total 1700 2350 [facility] Balance -40 300 -720 General: Alert, Oriented x3 HEENT: EOMI, Mucous membr. moist/pink Neck: Supple, Other (Obese and cannot evaluate JVP) Neuro: Alert, Non Focal Cardiovascular: Regular rate, No murmurs Respiratory: Breath sounds nml Abdomen: Soft, Other (Obese with pannus) Extremities: Other (4+ tense yolanda to knees) - Results Results: Laboratory Results WBC 7.0 x10^3/uL (4.8-10.8) 08/06/22 10:54 RBC 4.07 10^6/uL (4.20-5.40) L 08/06/22 10:54 Hgb 12.0 g/dL (12.0-16.0) 08/06/22 10:54 Hct 36.1 % (37.0-47.0) L 08/06/22 10:54 MCV 88.7 fL (81.0-99.0) 08/06/22 10:54 MCH 29.5 pg (27.0-31.0) 08/06/22 10:54 MCHC 33.2 g/dL (32.0-36.0) 08/06/22 10:54 RDW 14.0 % (12.0-15.0) 08/06/22 10:54 Plt Count 165 10^3/uL (130-450) 08/06/22 10:54 MPV 9.5 fL (7.9-10.8) 08/06/22 10:54 Neut # (Auto) 5.2 10^3/uL (1.5-6.6) 08/06/22 10:54 Lymph # (Auto) 1.1 10^3/uL (1.5-3.5) L 08/06/22 10:54 [place] # (Auto) 0.3 10^3/uL (0.0-1.0) 08/06/22 10:54 Eos # (Auto) 0.3 10^3/uL (0.0-0.7) 08/06/22 10:54 Baso # (Auto) 0.1 10^3/uL (0.0-0.1) 08/06/22 10:54 Absolute Nucleated RBC 0.00 x10^3/uL 08/06/22 10:54 Nucleated RBC % 0.0 /100WBC 08/06/22 10:54 Sodium 141 mmol/L (135-145) 08/09/22 04:42 Potassium 3.9 mmol/L (3.5-5.0) 08/09/22 04:42 Chloride 103 mmol/L (101-111) 08/09/22 04:42 Carbon Dioxide 29 mmol/L (21-32) 08/09/22 04:42 Anion Gap 9.0 (6-13) 08/09/22 04:42 BUN 27 mg/dL (6-20) H 08/09/22 04:42 Creatinine 1.2 mg/dL (0.4-1.0) H 08/09/22 04:42 Estimated GFR (MDRD) 44 (>89) L 08/09/22 04:42 Glucose 222 mg/dL (70-100) H 08/09/22 04:42 POC Whole Bld Glucose 212 mg/dL (70 - 100) H 08/09/22 16:48 Estimat Average Glucose 151 mg/dL (70-100) H 08/08/22 06:09 Hemoglobin A1c % 6.9 % (4.27-6.07) H 08/08/22 06:09 Calcium 9.0 mg/dL (8.5-10.3) 08/09/22 04:42 Magnesium 1.7 mg/dL (1.7-2.8) 08/08/22 06:09 Total Bilirubin 0.6 mg/dL (0.2-1.0) 08/06/22 10:54 AST 15 IU/L (10-42) 08/06/22 10:54 ALT 12 IU/L (10-60) 08/06/22 10:54 Alkaline Phosphatase 75 IU/L (42-121) 08/06/22 10:54 B-Natriuretic Peptide 174 pg/mL (5-100) H 08/09/22 04:42 Total Protein 7.1 g/dL (6.7-8.2) 08/06/22 10:54 Albumin 3.9 g/dL (3.2-5.5) 08/06/22 10:54 Globulin 3.2 g/dL (2.1-4.2) 08/06/22 10:54 Albumin/Globulin Ratio 1.2 (1.0-2.2) 08/06/22 10:54 TSH 4.96 uIU/mL (0.34-5.60) 08/07/22 07:46 Nasal Adenovirus (PCR) NOT DETECTED 08/06/22 10:51 Nasal B. parapertussis DNA (PCR) NOT DETECTED 08/06/22 10:51 Nasal Coronavir 229E PCR NOT DETECTED 08/06/22 10:51 Nasal Coronavir HKU1 PCR NOT DETECTED 08/06/22 10:51 Nasal Coronavir NL63 PCR NOT DETECTED 08/06/22 10:51 Nasal Coronavir OC43 PCR NOT DETECTED 08/06/22 10:51 Nasal Enterovir/Rhinovir PCR NOT DETECTED 08/06/22 10:51 Nasal Influenza B PCR NOT DETECTED 08/06/22 10:51 Nasal Influenza A PCR NOT DETECTED 08/06/22 10:51 Nasal Parainfluen 1 PCR NOT DETECTED 08/06/22 10:51 Nasal Parainfluen 2 PCR NOT DETECTED 08/06/22 10:51 Nasal Parainfluen 3 PCR NOT DETECTED 08/06/22 10:51 Nasal Parainfluen 4 PCR NOT DETECTED 08/06/22 10:51 Nasal RSV (PCR) NOT DETECTED 08/06/22 10:51 Nasal B.pertussis DNA PCR NOT DETECTED 08/06/22 10:51 Nasal C.pneumoniae (PCR) NOT DETECTED 08/06/22 10:51 Sin Human Metapneumo PCR NOT DETECTED 08/06/22 10:51 Nasal M.pneumoniae (PCR) NOT DETECTED 08/06/22 10:51 Nasal SARS-CoV-2 (PCR) NOT DETECTED 08/06/22 10:51
[2022-08-09] MEDS: INSULIN GLARGINE-YFGN 300 UNIT/3 ML PEN SUBQ SCH (20:50)
[2022-08-09] MEDS: diphenhydrAMINE 25 MG CAPSULE PO SCH (20:59)
[2022-08-09] MEDS: ATORVASTATIN 40 MG TABLET PO SCH (20:59)
[2022-08-10] MEDS: SODIUM CHLORIDE FLUSH 0.9% 10 ML SYRINGE IVP SCH ×3 (01:01→15:26)
[2022-08-10] MEDS: BENZOCAINE/MENTHOL LOZENGE MM PRN ×3 (01:01→15:49)
[2022-08-10] MEDS: BENZONATATE 100 MG CAPSULE PO PRN ×2 (02:04→18:12)
[2022-08-10 05:56] LABS: CALCIUM 9.2 mg/dL (8.5-10.3); CREATININE 1.1 mg/dL (0.4-1.0); POTASSIUM 3.8 mmol/L (3.5-5.0)
[2022-08-10] MEDS: LEVOTHYROXINE 25 MCG TABLET PO SCH (06:34)
[2022-08-10] MEDS: guaiFENesin 100 MG/5 ML UDC PO PRN ×2 (06:34→15:49)
[2022-08-10] MEDS: HEPARIN 5,000 UNIT/ML VIAL SUBQ SCH ×2 (08:39→20:54)
[2022-08-10] MEDS: INSULIN LISPRO 300 UNIT/3 ML PEN SUBQ SCH ×7 (08:40→20:47)
[2022-08-10] MEDS: FUROSEMIDE 40 MG TABLET PO SCH ×2 (08:44→14:09)
[2022-08-10] MEDS: carvediloL 12.5 MG TABLET PO SCH ×2 (08:44→20:49)
[2022-08-10] MEDS: LOSARTAN 50 MG TABLET PO SCH (08:44)
[2022-08-10] MEDS: amLODIPine 5 MG TABLET PO SCH (08:45)
[2022-08-10] MEDS: MAGNESIUM OXIDE 400 MG TABLET PO SCH (08:45)
[2022-08-10] MEDS: ASPIRIN CHEW 81 MG TABLET PO SCH (08:45)
[2022-08-10] MEDS: AZITHROMYCIN 250 MG TABLET PO SCH (08:45)
--- NOTE | 2022-08-10 17:17 | PROVIDER PROGRESS NOTE ---
Assessment/Plan - Problem List (1) Acute and chronic respiratory failure with hypoxia Assessment/Plan: She is on home O2 constantly at 2L, and has 2L bled into her BIPAP at hs. Her worsened oxygen desaturation was likely due to pulmonary edema seen on chest x-ray plus bronchitis. We started treating her with IV diuretics and antibx. Plan on tapering O2 down to room air keeping sats greater than 90% She will have an oximetry walk test on the day of discharge to see if the home oxygen order needs to be changed. 2) Acute on chronic diastolic heart failure The daughter, Shelia, who is an RN, was at the bedside and helped the patient give me history. The patient was seen by her perinatology physician Dr. Rojelio Cheng at about 10 months ago. There is no prior history of CHF according to the daughter, despite what our EMR says. But the daughter does not know what work-up she has had for her heart in the last 1 to 2 years. Echo done here showed normal LVEF, dilated RV with reduced function. She had only minimal negative fluid balance since admission and had 4+ tense edema of the legs until yesterday when it is noted that she has taken in greater than 2 L of fluids orally. She revealed that she was told to drink 1-2 L of water plus other fluids during her day, by some MD in the past. IV Lasix has been changed to p.o. Lasix We ordered a total fluid restriction of less than 2000 L cc per day. Following daily weights. Following electrolytes and magnesium daily, correct these if low 3) Cardiorenal syndrome The abn creat improved with Lasix. She is been switched over to p.o. Lasix. Avoid nephrotoxins. Follow BMP daily 4) Acute Bronchitis Patient reported that all her symptoms began with nasal congestion and a productive unremitting cough about a week ago. She took Motrin for the malaise and Robitussin and Tessalon Perles for the cough. We ordered sputum culture and then started empiric antibiotic (Zithromax). Spt cx was unremarkable I suspect the patient started getting leg edema because of right heart failure caused by this bronchitis on top of having chronic BLOSSOM, in a patient with possible pulmonary hypertension. 5) Cor pulmonale Echo was done and showed normal LVEF, dilated RV with reduced function. I suspect the patient started getting leg edema because of right heart failure caused by this bronchitis on top of chronic BLOSSOM, in a patient with probable pulmonary hypertension. Continue diuretics and pulmonary management. She still has alot of leg edema to diurese off, since legs were tense until yesterday She knows about leg elevation, which will help as (6) BLOSSOM on CPAP The ER got the story that she was not compliant with her CPAP. But in fact she is very compliant with her home BIPAP unit, which has 2L continuously bled in, except she was not wearing it the last 3 nights before admission, while she was orthopneic. This is when she was using her nasal cannula oxygen only on those 3 nights We have ordered use of her home BIPAP device while she is here and daughter brought it in. Pt wanted a sleeping aid, we ordered Benadryl 7) DM Type 2 As per Hx. An A1c came back at 6.9, indicating good glu control. We resumed her Novolog Insulin with meals and Basaglar Insulin in pm. We added Insulin 5U with meals. Continue with fingerstick checks, assess for ss coverage and adjusting her Lantus doses, ordered hypoglycemia protocol (see #5) 8) HTN We are continuing her usual home medications while here. Of note, amlodipine at 10 mg may have been adding to her leg edema and I d ecreased Amlodipine to 5 mg now and for DCh 9) Morbid obesity, BMI 45-49 As per Hx. 10) Hypothyroidism As per history. TSH level is in an acceptable range. Her home dose of Synthroid ordered 11) Hx of Amplatzer ASD closure As per Hx. On her last Echo, done January 2021, the atrial septum was intact and the occluder device was visible. Similar on Echo done this admission 12) Hx of CVA She had minimal residual L lower extremity hemiplegia, per records, after suffering foot drop and dysarthria and dysphagia and needing a PEG tube for 6 mos. 13) Hypoglycemia Resolved. Glucose dropped very low while in the ED on afternoon of admission, because she got no lunch while in the ED. Continue with a hypoglycemia protocol, ordered and fingerstick checks before m eals and at bedtime while here - Current Meds Current Meds: Current Medications Generic Name Dose Route Start Last Admin Trade Name Freq PRN Reason Stop Dose Admin Amlodipine Besylate 5 mg 08/09/22 09:00 08/10/22 08:45 Amlodipine 5 Mg Tablet PO 5 mg DAILY LUANN Administration Aspirin 81 mg 08/07/22 09:00 08/10/22 08:45 Aspirin Chew 81 Mg Tablet PO 81 mg DAILY LUANN Administration Atorvastatin Calcium 40 mg 08/08/22 09:23 08/09/22 20:59 Atorvastatin 40 Mg Tablet PO 40 mg 2100 LUANN Administration Azithromycin 250 mg 08/08/22 09:00 08/10/22 08:45 Azithromycin 250 Mg Tablet PO 08/12/22 00:01 250 mg DAILY LUANN Administration Benzonatate 200 mg 08/07/22 13:52 08/10/22 02:04 Benzonatate 100 Mg Capsule PO 200 mg TID PRN Administration Cough Carvedilol 25 mg 08/06/22 21:00 08/10/22 08:44 Carvedilol 12.5 Mg Tablet PO 25 mg BID LUANN Administration Diphenhydramine HCl 25 mg 08/08/22 21:00 08/09/22 20:59 Diphenhydramine 25 Mg Capsule PO 25 mg QPM LUANN Administration Furosemide 40 mg 08/08/22 15:00 08/10/22 14:09 Furosemide 40 Mg Tablet PO 40 mg 0800,1500 LUANN Administration Guaifenesin 200 mg 08/07/22 13:51 08/10/22 15:49 Guaifenesin 100 Mg/5 Ml Udc PO 200 mg Q4H PRN Administration Cough Heparin Sodium (Porcine) 5,000 unit 08/06/22 21:00 08/10/22 08:39 Heparin 5,000 Unit/Ml Vial SUBQ 5,000 unit BID LUANN Administration Insulin Glargine-yfgn 20 unit 08/08/22 21:00 08/09/22 20:50 Insulin Glargine-Yfgn 300 Unit/3 Ml Pen SUBQ 20 unit QPM LUANN Administration Insulin Human Lispro 3 - 11 unit 08/08/22 12:00 08/10/22 16:30 Insulin Lispro 300 Unit/3 Ml Pen SUBQ 7 unit 0800,1200,1700,2100 LUANN Administration Protocol Insulin Human Lispro 5 unit 08/09/22 12:00 08/10/22 11:57 Insulin Lispro 300 Unit/3 Ml Pen SUBQ 5 unit TIDWM LUANN Administration Protocol Levothyroxine Sodium 25 mcg 08/07/22 06:00 08/10/22 06:34 Levothyroxine 25 Mcg Tablet PO 25 mcg 0600 LUANN Administration Losartan Potassium 100 mg 08/07/22 09:00 08/10/22 08:44 Losartan 50 Mg Tablet PO 100 mg DAILY LUANN Administration Magnesium Oxide 400 mg 08/07/22 12:00 08/10/22 08:45 Magnesium Oxide 400 Mg Tablet PO 400 mg DAILYWM LUANN Administration Sodium Chloride 10 ml 08/06/22 18:27 08/06/22 21:39 Sodium Chloride Flush 0.9% 10 Ml Syringe IVP 10 ml PRN PRN Administration NEEDED PER PROVIDER ORDERS Sodium Chloride 10 ml 08/07/22 01:00 08/10/22 15:26 Sodium Chloride Flush 0.9% 10 Ml Syringe IVP Not Given 0100,0900,1700 LUANN Throat Lozenges 1 lozenge 08/07/22 02:42 08/10/22 15:49 Benzocaine/Menthol Lozenge MM 1 lozenge Q2HR PRN Administration Throat pain - Lab Result Fish Bone Diagrams: 08/06/22 10:54 08/10/22 05:18 - Additional Planning My Orders: My Active Orders 08/10/22 12:00 IV DC [IV Discontinuation] [RC] .ONCE Telemetry-Discontinue [RC] .ONCE Subjective - Subjective Patient Reports: Feeling Better, Other (Notices less tense leg edema since yesterday and is very happy to no longer be drinking 1L + of fluids daily as was recommended a long time ago by some MD) Objective Vital Signs: Vital Signs - 24 hr 08/09/22 08/09/22 08/10/22 19:10 20:52 00:41 Temperature 36.6 C 36.5 C Heart Rate [ 57 L 58 L Brachial] Respiratory 18 16 Rate Blood Pressure 134/66 H [Left Radial artery] Blood Pressure 151/80 H [Right Brachial artery] Blood Pressure [Right Radial artery] O2 Saturation 94 91 L If not protocol 2 2 2 : Oxygen Flow, liters/minute 08/10/22 08/10/22 08/10/22 05:17 07:44 07:51 Temperature 36.4 C L 36.6 C Heart Rate [ 55 L 67 Brachial] Respiratory 18 22 Rate Blood Pressure [Left Radial artery] Blood Pressure 117/62 [Right Brachial artery] Blood Pressure 148/60 H [Right Radial artery] O2 Saturation 94 96 If not protocol 2 2 : Oxygen Flow, liters/minute 08/10/22 08/10/22 11:28 15:51 Temperature 36.6 C 36.9 C Heart Rate [ 58 L 62 Brachial] Respiratory 20 20 Rate Blood Pressure 141/52 H [Left Radial artery] Blood Pressure 148/61 H [Right Brachial artery] Blood Pressure [Right Radial artery] O2 Saturation 96 95 If not protocol 2 2 : Oxygen Flow, liters/minute Oxygen O2 Source Nasal cannula I&O (Last 24 Hrs): Intake and Output Totals x24h 08/08/22 08/09/22 08/10/22 23:59 23:59 23:59 Intake Total 2050 910 1060 Output Total 2350 1580 1150 Balance -300 -670 -90 General: Alert, Oriented x3 HEENT: Mucous membr. moist/pink Neck: Supple, Other (Obese and cannot evaluate JVP) Neuro: Alert, Non Focal Cardiovascular: No murmurs Respiratory: No respiratory distress, Breath sounds nml Abdomen: Normal bowel sounds, Soft, Other (Obese with pannus) Extremities: Other (3+ edema to knees, less tense) - Results Results: Laboratory Results WBC 7.0 x10^3/uL (4.8-10.8) 08/06/22 10:54 RBC 4.07 10^6/uL (4.20-5.40) L 08/06/22 10:54 Hgb 12.0 g/dL (12.0-16.0) 08/06/22 10:54 Hct 36.1 % (37.0-47.0) L 08/06/22 10:54 MCV 88.7 fL (81.0-99.0) 08/06/22 10:54 MCH 29.5 pg (27.0-31.0) 08/06/22 10:54 MCHC 33.2 g/dL (32.0-36.0) 08/06/22 10:54 RDW 14.0 % (12.0-15.0) 08/06/22 10:54 Plt Count 165 10^3/uL (130-450) 08/06/22 10:54 MPV 9.5 fL (7.9-10.8) 08/06/22 10:54 Neut # (Auto) 5.2 10^3/uL (1.5-6.6) 08/06/22 10:54 Lymph # (Auto) 1.1 10^3/uL (1.5-3.5) L 08/06/22 10:54 [place] # (Auto) 0.3 10^3/uL (0.0-1.0) 08/06/22 10:54 Eos # (Auto) 0.3 10^3/uL (0.0-0.7) 08/06/22 10:54 Baso # (Auto) 0.1 10^3/uL (0.0-0.1) 08/06/22 10:54 Absolute Nucleated RBC 0.00 x10^3/uL 08/06/22 10:54 Nucleated RBC % 0.0 /100WBC 08/06/22 10:54 Sodium 139 mmol/L (135-145) 08/10/22 05:18 Potassium 3.8 mmol/L (3.5-5.0) 08/10/22 05:18 Chloride 102 mmol/L (101-111) 08/10/22 05:18 Carbon Dioxide 29 mmol/L (21-32) 08/10/22 05:18 Anion Gap 8.0 (6-13) 08/10/22 05:18 BUN 29 mg/dL (6-20) H 08/10/22 05:18 Creatinine 1.1 mg/dL (0.4-1.0) H 08/10/22 05:18 Estimated GFR (MDRD) 49 (>89) L 08/10/22 05:18 Glucose 224 mg/dL (70-100) H 08/10/22 05:18 POC Whole Bld Glucose 231 mg/dL (70 - 100) H 08/10/22 16:26 Estimat Average Glucose 151 mg/dL (70-100) H 08/08/22 06:09 Hemoglobin A1c % 6.9 % (4.27-6.07) H 08/08/22 06:09 Calcium 9.2 mg/dL (8.5-10.3) 08/10/22 05:18 Magnesium 1.7 mg/dL (1.7-2.8) 08/08/22 06:09 Total Bilirubin 0.6 mg/dL (0.2-1.0) 08/06/22 10:54 AST 15 IU/L (10-42) 08/06/22 10:54 ALT 12 IU/L (10-60) 08/06/22 10:54 Alkaline Phosphatase 75 IU/L (42-121) 08/06/22 10:54 B-Natriuretic Peptide 235 pg/mL (5-100) H 08/10/22 05:18 Total Protein 7.1 g/dL (6.7-8.2) 08/06/22 10:54 Albumin 3.9 g/dL (3.2-5.5) 08/06/22 10:54 Globulin 3.2 g/dL (2.1-4.2) 08/06/22 10:54 Albumin/Globulin Ratio 1.2 (1.0-2.2) 08/06/22 10:54 TSH 4.96 uIU/mL (0.34-5.60) 08/07/22 07:46 Nasal Adenovirus (PCR) NOT DETECTED 08/06/22 10:51 Nasal B. parapertussis DNA (PCR) NOT DETECTED 08/06/22 10:51 Nasal Coronavir 229E PCR NOT DETECTED 08/06/22 10:51 Nasal Coronavir HKU1 PCR NOT DETECTED 08/06/22 10:51 Nasal Coronavir NL63 PCR NOT DETECTED 08/06/22 10:51 Nasal Coronavir OC43 PCR NOT DETECTED 08/06/22 10:51 Nasal Enterovir/Rhinovir PCR NOT DETECTED 08/06/22 10:51 Nasal Influenza B PCR NOT DETECTED 08/06/22 10:51 Nasal Influenza A PCR NOT DETECTED 08/06/22 10:51 Nasal Parainfluen 1 PCR NOT DETECTED 08/06/22 10:51 Nasal Parainfluen 2 PCR NOT DETECTED 08/06/22 10:51 Nasal Parainfluen 3 PCR NOT DETECTED 08/06/22 10:51 Nasal Parainfluen 4 PCR NOT DETECTED 08/06/22 10:51 Nasal RSV (PCR) NOT DETECTED 08/06/22 10:51 Nasal B.pertussis DNA PCR NOT DETECTED 08/06/22 10:51 Nasal C.pneumoniae (PCR) NOT DETECTED 08/06/22 10:51 Sin Human Metapneumo PCR NOT DETECTED 08/06/22 10:51 Nasal M.pneumoniae (PCR) NOT DETECTED 08/06/22 10:51 Nasal SARS-CoV-2 (PCR) NOT DETECTED 08/06/22 10:51
[2022-08-10] MEDS: diphenhydrAMINE 25 MG CAPSULE PO SCH (20:48)
[2022-08-10] MEDS: INSULIN GLARGINE-YFGN 300 UNIT/3 ML PEN SUBQ SCH (20:48)
[2022-08-10] MEDS: ATORVASTATIN 40 MG TABLET PO SCH (20:48)
[2022-08-11] MEDS: SODIUM CHLORIDE FLUSH 0.9% 10 ML SYRINGE IVP SCH (00:59)
[2022-08-11] MEDS: LEVOTHYROXINE 25 MCG TABLET PO SCH (06:50)
--- NOTE | 2022-08-11 07:52 | Discharge Plan ---
Discharge Plan Problem Reviewed?: Yes Disposition: Home, Self Care Condition: Stable Prescriptions: Furosemide [Lasix] 40 mg PO 0800,1600 #40 tab amLODIPine [Norvasc] 5 mg PO DAILY #30 tab Benzonatate [Tessalon] 200 mg PO BID PRN #30 cap PRN Reason: Cough Diet: Diabetic Activity Restrictions: Activity as Tolerated Shower Restrictions: No Instruction Topics: Heart Failure Warning Signs, Heart Failure Tracking Weight, Heart Failure Diet Changes Health Concerns: You were hospitalized to treat Bronchitis and Congestive Heart Failure that caused your respiratory failure causing low oxygen levels. You received IV medications. You are being discharged home with some adjustments in your heart and BP medications: Amlodipine has been decreased and Furosemide has been increased. Please follow the new list of medications to take. A new prescription was also sent for Tessalon Perles. The new prescriptions were electronically sent to the [facility] pharmacy in [place]. You may also use Robitussin ([id number] syrup) for cough suppression too. You were tested to see if you need new settings of your oxygen, and you do need a minor change: 2L at rest, 3L with activity and 2L plugged into your CPAP at night. Please resume all your previous diabetic medications and diabetic management and your home CPAP and oxygen. Remember to limit your TOTAL fluid intake per day down to approximately 2 quarts/day. Remember to keep your feet elevated whenever you are sitting, to help drain the fluid in the legs. Plan of Treatment: As above. It is a good idea to weigh yourself daily, and if you notice a more than 3-5 pound weight gain over 1 day, this is probably from fluid retention. You may then take an extra dose of Lasix on that day at lunchtime. Care Goals: Improvement in symptoms and stabilization are the goals. Assessment: The patient understands and is agreeable with the plan. Additional Instructions or Follow Up instructions: Please see your PCP and or Boat Can[employer] Maker [employer] Installer in the next 1 to 2 weeks for a hospital follow-up visit. No Smoking: If you smoke, Please STOP! Call for help. Follow-up with: Radha Whitehead ARNP [Provider Admit Priv/Credential] - Ny Garza ARNP [Provider Admit Priv/Credential] - ELISA PAIZ MD [Physician No Access] -
[2022-08-11] MEDS: ASPIRIN CHEW 81 MG TABLET PO SCH (08:24)
[2022-08-11] MEDS: FUROSEMIDE 40 MG TABLET PO SCH (08:24)
[2022-08-11] MEDS: amLODIPine 5 MG TABLET PO SCH (08:24)
[2022-08-11] MEDS: carvediloL 12.5 MG TABLET PO SCH (08:24)
[2022-08-11] MEDS: LOSARTAN 50 MG TABLET PO SCH (08:24)
[2022-08-11] MEDS: MAGNESIUM OXIDE 400 MG TABLET PO SCH (08:24)
[2022-08-11] MEDS: INSULIN LISPRO 300 UNIT/3 ML PEN SUBQ SCH ×2 (08:25)
[2022-08-11] MEDS ORDERED: carvediloL 12.5 MG TABLET PO SCH (09:17)
[2022-08-11] MEDS: BENZOCAINE/MENTHOL LOZENGE MM PRN (09:49)
[2022-08-11] MEDS: BENZONATATE 100 MG CAPSULE PO PRN (09:49)
[2022-08-11] MEDS: AZITHROMYCIN 250 MG TABLET PO SCH (09:52)
[2022-08-11] MEDS: HEPARIN 5,000 UNIT/ML VIAL SUBQ SCH (09:53)
--- NOTE | 2022-08-11 10:17 | DISCHARGE SUMMARY ---
Discharge Summary Admit Date: 08/06/22 Discharge Date: 08/11/22 Discharging Provider: Dr Tita Velasco Primary Care Provider: Ny Garza NP, Radha Whitehead NP and Dr Rojelio Cheng (, Cardiology) Condition at Discharge: Fair Discharge Disposition: 01 Home, Self Care - HPI History of Present Illness: From the admission H&P of Telemedicine night provider: This is a 72 y old female with PMH of HTN, DM type 2, Hyperlipidemia, Hypothyroidism, CHF, Obesity, BLOSSOM on CPAP at night, on home oxygen 2L via NC, andd Hx Stroke, who came to ER with c/o shortness of breath, incessant cough with expectoration of yellowish colored sputum and B/L leg edema for 1 week. As per pt, she has gained about 15 lbs in last few weeks. Denies chest pain, fever, RAMÍREZ, Nausea, vomiting, diarrhea, constipation, symptoms. Patient also c/o orthopnea for 3 nights. On presentaion, she was afebrile. In ER, her oxygen sat dropped to 88% during exertion. Labs showed elevated BNP. CXR showed pulmonary e james. In ER, pt was given IV lasix. Pt also had episode of hypoglycemia in ER for which she was given D50. Patient is being admitted due to Acute on chronic CHF exacerbation. - HOSPITAL COURSE Hospital Course: (1) Acute and chronic respiratory failure with hypoxia She is on home O2 constantly at 2L, and has 2L bled into her BIPAP at hs. Her worsened oxygen desaturation was likely due to pulmonary edema seen on chest x- ray plus bronchitis. We started treating her with IV diuretics and antibx. Supplemental oxygen was briefly as high as 4 L, then back down to 2 L. On the day of discharge, she underwent an oximetry walk test: Patient was hypoxic at rest on room air with O2 sat of 83%. At rest with O2 at 2 L/min nasal cannula, her O2 sats improved to 92%. With exertion at 2 L/min nasal cannula, her O2 sats were 87%. But with 3 L/min oxygen during exertion, her O2 sat improved to 92%. I am ordering home O2 set at 2 L/min at rest, 3 L/min with exertion and 2 L/min with sleep to treat congestive heart failure. 2) Acute on chronic diastolic heart failure The patient has been seen by Art History Instructor Dr. Rojelio Cheng at about 10 months ago. There is no prior history of CHF according to the daughter, despite what our EMR says. But the daughter does not know what work-up she has had for her heart in the last 1 to 2 years. An Echo was done here and showed normal LVEF, diastolic dysfunction present and a dilated RV with reduced RV function. IV diuretics were started and she had only minimal negative fluid balance and had 4+ tense edema of the legs. She revealed that she was told to drink 1-2 L of water plus other fluids during her day, by some MD in the past. Eventually she had resolution of her pulmonary edema and decreased leg edema from 4+ intense down to 2+ edema to the knees. She was discharged home on a higher dose of Lasix. 3) Acute Bronchitis Patient reported that all her symptoms began with nasal congestion and a productive unremitting cough about a week previously. She took Motrin for the malaise and Robitussin and Tessalon Perles for the cough. We ordered sputum culture and started empiric antibiotic (Zithromax). Spt cx was unremarkable. 4) Cor pulmonale The Echo showed a dilated RV with reduced RV function. I suspect the patient started getting leg edema because of right heart failure caused by this bronchitis on top of chronic BLOSSOM. Her amlodipine dose of 10 mg was decreased to 5 mg (because of the edema caused at 10 mg of amlodipine). Her furosemide dose was increased from 20 twice daily to 40 twice daily at discharge. She knows about leg elevation, which will help as well. 5) BLOSSOM on CPAP We ordered use of her home BIPAP device while she was here. 6) Cardiorenal syndrome The abnormal creat of 1.2 at admission improved with Lasix. 7) DM Type 2 Her A1c came back at 6.9, indicating good glu control. She was continued on No volog Insulin with meals and Basaglar Insulin in pm and ss Insulin coverage. 8) HTN We continued her usual home medications while here, except decreased Amlodipine to 5 mg, since Lsix was increased. 9) Morbid obesity, BMI 45-49 As per Hx. 10) Hypothyroidism Her TSH level was in an acceptable range. Her home dose of Synthroid was continued. 11) Hx of Amplatzer ASD closure As per Hx. On her last Echo, done January 2021, the atrial septum was intact and the occluder device was visible. Similar on Echo done this admission 12) Hx of CVA She had minimal residual L lower extremity hemiplegia, per records, after suffering foot drop and dysarthria and dysphagia and needing a PEG tube for 6 mos, remotely, she reported. 13) Hypoglycemia Glucose dropped very low while in the ED on afternoon of admission, because she had no lunch while in the ED. - ALLERGIES Allergies/Adverse Reactions: Allergies Allergy/AdvReac Type Severity Reaction Status Date / Time pineapple AdvReac Itching Verified 08/06/22 20:55 - MEDICATIONS Home Medications: Ambulatory Orders Medication Instructions Recorded Confirmed Metformin HCl [Metformin ER 500 mg PO BID 08/08/14 08/06/22 Osmotic] Carvedilol [Coreg] 25 mg PO BID 08/09/14 08/06/22 DULoxetine [Cymbalta] 20 mg PO DAILY 08/09/14 08/06/22 Potassium Chloride 10 meq PO DAILY 08/09/14 08/06/22 Atorvastatin [Lipitor] 40 mg PO HS 10/09/15 08/06/22 Insulin Aspart [Novolog Flexpen] 20 unit SQ TIDWM 10/09/15 08/07/22 Topiramate 50 mg PO BID 10/09/15 08/06/22 Insulin Glargine,Hum.rec.anlog 50 unit SUBQ QPM 01/22/21 08/06/22 [Basaglar Kwikpen U-100] Levothyroxine [Synthroid] 25 mcg PO DAILY 01/22/21 08/06/22 Losartan Potassium [Cozaar] 100 mg PO DAILY 01/22/21 08/06/22 Cholecalciferol (Vitamin D3) 1,000 unit PO DAILY 03/12/21 08/06/22 [Vitamin D3] Magnesium Oxide [Magnesium] 400 mg PO BID 03/12/21 08/06/22 [place]-3/Dha/Epa/Fish Oil [Fish Oil 1 each PO DAILY 03/12/21 08/06/22 1,000 mg Softgel] Aspirin EC [Ecotrin] 81 mg PO DAILY 08/06/22 08/06/22 Benzonatate [Tessalon] 200 mg PO BID PRN #30 cap 08/11/22 Furosemide [Lasix] 40 mg PO 0800,1600 #40 tab 08/11/22 amLODIPine [Norvasc] 5 mg PO DAILY #30 tab 08/11/22 - LABS Result Diagrams: 08/06/22 10:54 08/10/22 05:18
[2022-08-11 10:48] VITALS: BP 153/89
== END 2022-08-11 11:00 | disposition home or self-care (01) | DRG 291 ==
LOC: ED 10:29 → MS2 18:27
PROVIDERS: ADMIT Internal Medicine; ATTEND Internal Medicine
DX: I11.0 Hypertensive heart disease with heart failure (principal); I50.9 Heart failure, unspecified; J96.01 Acute respiratory failure with hypoxia; I13.0 Hypertensive heart and chronic kidney disease with heart failure and stage 1 through stage 4 chronic kidney disease, or unspecified chronic kidney disease; I50.33 Acute on chronic diastolic (congestive) heart failure; I49.3 Ventricular premature depolarization; I49.1 Atrial premature depolarization; I45.10 Unspecified right bundle-branch block; Z20.822 Contact with and (suspected) exposure to COVID-19; J96.21 Acute and chronic respiratory failure with hypoxia; Z87.891 Personal history of nicotine dependence; Z68.42 Body mass index [BMI] 45.0-49.9, adult; G47.33 Obstructive sleep apnea (adult) (pediatric); E03.9 Hypothyroidism, unspecified; E11.649 Type 2 diabetes mellitus with hypoglycemia without coma; J20.9 Acute bronchitis, unspecified; I27.81 Cor pulmonale (chronic); E11.22 Type 2 diabetes mellitus with diabetic chronic kidney disease; N18.9 Chronic kidney disease, unspecified; E66.01 Morbid (severe) obesity due to excess calories; E11.42 Type 2 diabetes mellitus with diabetic polyneuropathy; E78.00 Pure hypercholesterolemia, unspecified; F32.A Depression, unspecified; F41.9 Anxiety disorder, unspecified; Z79.4 Long term (current) use of insulin; Z79.82 Long term (current) use of aspirin; Z79.890 Hormone replacement therapy; Z79.899 Other long term (current) drug therapy; Z86.73 Personal history of transient ischemic attack (TIA), and cerebral infarction without residual deficits; Z99.81 Dependence on supplemental oxygen
CPT/HCPCS: 36415; 71045; 80048; 80053; 83036; 83735; 83880; 84443; 85025; 87070; 87205; 87633; 93005; 93306; 94761; 96374; 96375; 99285; 99291; A9270; J1815

== ENCOUNTER 2022-08-19 10:06 | Outpatient (CLI) | payer MEDICARE, MEDICAID ==
[2022-08-19 10:32] LABS: CALCIUM 9.4 mg/dL (8.5-10.3); CREATININE 1.2 mg/dL (0.4-1.0); POTASSIUM 4.3 mmol/L (3.5-5.0)
== END 2022-08-19 10:07 | disposition home or self-care (01) ==
LOC: LAB 10:06
PROVIDERS: ATTEND Physician Assistant
DX: I50.33 Acute on chronic diastolic (congestive) heart failure (principal)
CPT/HCPCS: 36415; 80048

== ENCOUNTER 2022-09-24 10:04 | Outpatient (CLI) | payer MEDICARE, MEDICAID ==
--- NOTE | 2022-09-25 16:24 | Mammography Report ---
BILATERAL DIGITAL SCREENING MAMMOGRAM 3D/2D: 09/24/2022 CLINICAL: Routine screening. Comparison is made to exams dated: 11/08/2014 mammogram and 03/10/2012 mammogram - [facility]. There are scattered areas of fibroglandular density in both breasts (category b / 25%-50% glandular t issue). No significant masses, calcifications, or other findings are seen in either breast. There has been no significant interval change. IMPRESSION: NEGATIVE There is no mammographic evidence of malignancy. A 1 year screening mammogram is recommended. Based on the Tyrer Cuzick model (a risk assessment model) the patients lifetime risk is 2.7% and her 10 year risk is 2.4%. According to the ACR, ACS, and NCCN guidelines, an annual breast MRI exam june g with mammogram is recommended if the patients lifetime risk is 20% or greater. This exam was interpreted at Station ID: [id number]. NOTE: For mammograms, a report in lay terms will be sent to the patient. Approximately 15% of breast malignancies will not be visualized mammographically. In the management of a palpable breast mass, a negative mammogram must not discourage biopsy of a clinically suspicious lesion. Electronically Signed By: Joselin hartley/irina:09/24/2022 17:33:49 ACR BI-RADS Category 1: Negative 3341F PARENCHYMAL PATTERN: (A) - The breast(s) demonstrate(s) scattered fibroglandular densities. BI-RADS CATEGORY: (1) - 1 RECOMMENDATION: (ANNUAL) - Recommend routine annual screening mammography. [id number] 1 year screening LATERALITY: (B)
== END 2022-09-24 10:05 | disposition home or self-care (01) ==
LOC: DI 10:04
PROVIDERS: ATTEND Nurse Practitioner
DX: Z12.31 Encounter for screening mammogram for malignant neoplasm of breast (principal)

== ENCOUNTER 2022-11-04 08:11 | Outpatient (CLI) | payer MEDICARE, MEDICAID ==
--- NOTE | 2022-11-04 09:48 | DEXA Report ---
PROCEDURE: Dexa Spine and/or Hip INDICATIONS: POSTMENOPAUSAL TECHNIQUE: Dual energy x-ray absorptiometry (DXA) was performed on a Paperwoven System. Regions measur ed are the AP Spine, femoral neck, and if needed forearm. COMPARISON: None. FINDINGS: Lumbar Spine: Bone Mineral Density 1.164 g/cm/cm,T score -0.1. Left Femoral Neck: Bone Mineral Density 1.200 g/cm/cm, T score 1.2. Left Hip: Bone Mineral Density 0.996 g/cm/cm,T score -0.1. (T score greater or equal to -1.0: NORMAL) (T score from -1.1 to -2.4: OSTEOPENIA) (T score less than or equal to -2.5 to: OSTEOPOROSIS) Impression: Normal bone mineral density. Patients with diagnosis of osteoporosis or osteopenia should have regular bone mineral density assess ment. For those eligible for Medicare, routine testing is allowed once every 2 years. Testing frequ ency can be increased for patients who have rapidly progressing disease or for those who are receivin g medical therapy to restore bone mass. Reviewed by: Jamil Jj MD on 11/04/2022 9:46 AM PST Approved by: Jamil Jj MD on 11/04/2022 9:46 AM PST Station ID: [id number]
== END 2022-11-04 08:12 | disposition home or self-care (01) ==
LOC: DI 08:11
PROVIDERS: ATTEND Nurse Practitioner
DX: Z78.0 Asymptomatic menopausal state (principal)

== ENCOUNTER 2022-12-10 11:02 | Outpatient (CLI) | payer MEDICARE, MEDICAID ==
[2022-12-10 11:39] LABS: ALBUMIN/GLOBULIN RATIO 1.1 (1.0-2.2); BILIRUBIN,TOTAL 0.9 mg/dL (0.2-1.0); CALCIUM 9.6 mg/dL (8.5-10.3); CREATININE 1.1 mg/dL (0.4-1.0); POTASSIUM 4.4 mmol/L (3.5-5.0); TOTAL PROTEIN 7.8 g/dL (6.7-8.2)
[2022-12-10 12:21] LABS: ESTIMATED AVERAGE GLUCOSE 163 mg/dL (70-100); HEMOGLOBIN A1c% 7.3 % (4.27-6.07)
== END 2022-12-10 11:03 | disposition home or self-care (01) ==
LOC: LAB 11:02
PROVIDERS: ATTEND Nurse Practitioner
DX: I50.9 Heart failure, unspecified (principal); E11.9 Type 2 diabetes mellitus without complications
CPT/HCPCS: 36415; 80053; 83036

== ENCOUNTER 2023-01-27 11:47 | Outpatient (CLI) | payer MEDICARE, MEDICAID ==
[2023-01-27 12:05] LABS: BASOPHILS # (AUTO) 0.1 10^3/uL (0.0-0.1); BASOPHILS % (AUTO) 0.6 %; EOSINOPHILS # (AUTO) 0.1 10^3/uL (0.0-0.7); EOSINOPHILS % (AUTO) 1.4 %; HCT - HEMATOCRIT 37.7 % (37.0-47.0); HGB - HEMOGLOBIN 12.6 g/dL (12.0-16.0); LYMPHOCYTES # (AUTO) 1.2 10^3/uL (1.5-3.5); MEAN CORPUSCULAR HEMOGLOBIN 29.2 pg (27.0-31.0); MEAN CORPUSCULAR HGB CONC 33.4 g/dL (32.0-36.0); MEAN CORPUSCULAR VOLUME 87.3 fL (81.0-99.0); MEAN PLATELET VOLUME 9.7 fL (7.9-10.8); MONOCYTES # (AUTO) 0.4 10^3/uL (0.0-1.0); MONOCYTES % (AUTO) 4.5 %; NEUTROPHILS # (AUTO) 6.9 10^3/uL (1.5-6.6); NEUTROPHILS % (AUTO) 78.9 %; PLT - PLATELET COUNT 185 10^3/uL (130-450); RED BLOOD COUNT 4.32 10^6/uL (4.20-5.40); RED CELL DISTRIBUTION WIDTH 13.8 % (12.0-15.0); WHITE BLOOD COUNT 8.7 x10^3/uL (4.8-10.8)
[2023-01-27 12:17] LABS: ALBUMIN 3.8 g/dL (3.2-5.5); ALBUMIN/GLOBULIN RATIO 1.1 (1.0-2.2); BILIRUBIN,TOTAL 0.6 mg/dL (0.2-1.0); CALCIUM 9.3 mg/dL (8.5-10.3); CREATININE 1.2 mg/dL (0.4-1.0); MAGNESIUM 1.8 mg/dL (1.7-2.8); POTASSIUM 4.3 mmol/L (3.5-5.0); TOTAL PROTEIN 7.4 g/dL (6.7-8.2)
[2023-01-27 13:00] LABS: ESTIMATED AVERAGE GLUCOSE 151 mg/dL (70-100); HEMOGLOBIN A1c% 6.9 % (4.27-6.07)
== END 2023-01-27 11:48 | disposition home or self-care (01) ==
LOC: LAB 11:47
PROVIDERS: ATTEND Nurse Practitioner
DX: I10 Essential (primary) hypertension (principal); E11.9 Type 2 diabetes mellitus without complications; Z51.81 Encounter for therapeutic drug level monitoring; E83.42 Hypomagnesemia
CPT/HCPCS: 36415; 80053; 83036; 83735; 85025

== ENCOUNTER 2023-04-11 14:41 | Outpatient (CLI) | payer MEDICARE, MEDICAID ==
--- NOTE | 2023-04-11 16:16 | Ultrasound Report ---
PROCEDURE: Duplex Ext Veins Right INDICATIONS: UPPER EXT - RIGHT ARM SWELLING TECHNIQUE: Real-time imaging, as well as color and pulse Doppler interrogation, were performed of the lower extr emity deep veins from the inguinal ligament to the popliteal fossa. COMPARISON: None. FINDINGS: The deep veins are normally compressible, and free of intraluminal thrombus. Color and pu lse Doppler demonstrate normal phasic intraluminal flow. There is normal augmentation response to di stal compression maneuver. IMPRESSION: Negative duplex venous ultrasound right upper extremity DVT. Reviewed by: Jake Lee MD on 04/11/2023 4:15 PM PDT Approved by: Jake Lee MD on 04/11/2023 4:15 PM PDT Station ID: [id number]
== END 2023-04-11 14:42 | disposition home or self-care (01) ==
LOC: DI 14:41
PROVIDERS: ATTEND Physician Assistant
DX: R22.31 Localized swelling, mass and lump, right upper limb (principal)

== ENCOUNTER 2023-05-21 10:39 | Outpatient (CLI) | payer MEDICARE, MEDICAID ==
--- NOTE | 2023-05-22 12:08 | Mammography Report ---
UNILATERAL RIGHT DIGITAL DIAGNOSTIC MAMMOGRAM 3D/2D WITH AXILLARY TAIL: 05/21/2023 CLINICAL: Right breast and arm swelling. Comparison is made to exams dated: 09/24/2022 mammogram, 11/08/2014 mammogram, and 03/10/2012 mammogra m - [facility]. There are scattered areas of fibroglandular density in the right breast (category b / 25%-50% glandul ar tissue). No significant masses, calcifications, or other findings are seen in the breast. IMPRESSION: NEGATIVE There is no abnormality seen in the right breast to correspond with the area of clinical concern (lat eral breast and right swelling), however, clinical correlation and clinical followup are recommended to determine need for any additional imaging (for example, CT or vascular US). No asymmetry or mass o n mammogram necessitating further breast US workup. There is no mammographic evidence of malignancy. Return to annual mammogram screening schedule is rec ommended. Based on the Tyrer Cuzick model (a risk assessment model) the patients lifetime risk is 2.7% and her 10 year risk is 2.4%. According to the ACR, ACS, and NCCN guidelines, an annual breast MRI exam june g with mammogram is recommended if the patients lifetime risk is 20% or greater. This exam was interpreted at Station ID: [id number]. NOTE: For mammograms, a report in lay terms will be sent to the patient. Approximately 15% of breast malignancies will not be visualized mammographically. In the management of a palpable breast mass, a negative mammogram must not discourage biopsy of a clinically suspicious lesion. Electronically Signed By: Rojelio Burris M.D. lc/:05/22/2023 12:00:42 Entry: - 05/22/2023 12:00:42 ACR BI-RADS Category 1: Negative 3341F PARENCHYMAL PATTERN: (A) - The breast(s) demonstrate(s) scattered fibroglandular densities. BI-RADS CATEGORY: (1) - 1 Mammogram [id number] return to screening LATERALITY: (B)
== END 2023-05-21 10:40 | disposition home or self-care (01) ==
LOC: DI 10:39
PROVIDERS: ATTEND Nurse Practitioner
DX: N63.10 Unspecified lump in the right breast, unspecified quadrant (principal)

== ENCOUNTER 2023-09-09 11:27 | Outpatient (CLI) | payer MEDICARE, MEDICAID ==
[2023-09-09 11:46] LABS: BASOPHILS % (AUTO) 0.5 %; EOSINOPHILS # (AUTO) 0.2 10^3/uL (0.0-0.7); EOSINOPHILS % (AUTO) 1.9 %; HCT - HEMATOCRIT 38.3 % (37.0-47.0); HGB - HEMOGLOBIN 12.6 g/dL (12.0-16.0); LYMPHOCYTES # (AUTO) 1.5 10^3/uL (1.5-3.5); LYMPHOCYTES % (AUTO) 17.7 %; MEAN CORPUSCULAR HEMOGLOBIN 29.5 pg (27.0-31.0); MEAN CORPUSCULAR HGB CONC 32.9 g/dL (32.0-36.0); MEAN CORPUSCULAR VOLUME 89.7 fL (81.0-99.0); MEAN PLATELET VOLUME 9.3 fL (7.9-10.8); MONOCYTES # (AUTO) 0.4 10^3/uL (0.0-1.0); MONOCYTES % (AUTO) 4.7 %; NEUTROPHILS # (AUTO) 6.4 10^3/uL (1.5-6.6); NEUTROPHILS % (AUTO) 74.5 %; PLT - PLATELET COUNT 176 10^3/uL (130-450); RED BLOOD COUNT 4.27 10^6/uL (4.20-5.40); RED CELL DISTRIBUTION WIDTH 14.6 % (12.0-15.0); WHITE BLOOD COUNT 8.6 x10^3/uL (4.8-10.8)
[2023-09-09 11:54] LABS: CREATININE,URINE 18.8 mg/dL; MICROALBUMIN,URINE < 0.7 mg/dL
[2023-09-09 11:59] LABS: ALBUMIN 4.3 g/dL (3.2-5.5); ALBUMIN/GLOBULIN RATIO 1.4 (1.0-2.2); BILIRUBIN,TOTAL 0.5 mg/dL (0.2-1.0); CALCIUM 10.1 mg/dL (8.5-10.3); POTASSIUM 3.6 mmol/L (3.5-4.5); TOTAL PROTEIN 7.4 g/dL (6.4-8.9)
[2023-09-09 12:24] LABS: ESTIMATED AVERAGE GLUCOSE 160 mg/dL (70-100); HEMOGLOBIN A1c% 7.2 % (4.27-6.07)
== END 2023-09-09 11:28 | disposition home or self-care (01) ==
LOC: LAB 11:27
PROVIDERS: ATTEND Nurse Practitioner
DX: E11.319 Type 2 diabetes mellitus with unspecified diabetic retinopathy without macular edema (principal); I11.0 Hypertensive heart disease with heart failure; I50.33 Acute on chronic diastolic (congestive) heart failure
CPT/HCPCS: 36415; 80053; 82043; 82570; 83036; 85025

== ENCOUNTER 2024-02-13 08:29 | Outpatient (CLI) | payer MEDICARE, MEDICAID ==
[2024-02-13 08:46] LABS: BASOPHILS % (AUTO) 0.5 %; EOSINOPHILS # (AUTO) 0.2 10^3/uL (0.0-0.7); EOSINOPHILS % (AUTO) 1.9 %; HCT - HEMATOCRIT 38.9 % (37.0-47.0); HGB - HEMOGLOBIN 12.8 g/dL (12.0-16.0); LYMPHOCYTES # (AUTO) 1.3 10^3/uL (1.5-3.5); LYMPHOCYTES % (AUTO) 16.5 %; MEAN CORPUSCULAR HEMOGLOBIN 30.1 pg (27.0-31.0); MEAN CORPUSCULAR HGB CONC 32.9 g/dL (32.0-36.0); MEAN CORPUSCULAR VOLUME 91.5 fL (81.0-99.0); MEAN PLATELET VOLUME 9.3 fL (7.9-10.8); MONOCYTES # (AUTO) 0.4 10^3/uL (0.0-1.0); MONOCYTES % (AUTO) 4.5 %; NEUTROPHILS % (AUTO) 76.1 %; PLT - PLATELET COUNT 166 10^3/uL (130-450); RED BLOOD COUNT 4.25 10^6/uL (4.20-5.40); RED CELL DISTRIBUTION WIDTH 13.8 % (12.0-15.0); WHITE BLOOD COUNT 7.8 x10^3/uL (4.8-10.8)
[2024-02-13 09:06] LABS: ESTIMATED AVERAGE GLUCOSE 171 mg/dL (70-100); HEMOGLOBIN A1c% 7.6 % (4.27-6.07)
[2024-02-13 09:07] LABS: ALBUMIN 3.9 g/dL (3.2-5.5); ALBUMIN/GLOBULIN RATIO 1.3 (1.0-2.2); ALKALINE PHOSPHATASE 69 IU/L (42-121); ALT ALANINE AMINOTRANSFERASE 13 IU/L (10-60); AST ASPARTATE AMINOTRANSFERASE 10 IU/L (10-42); BILIRUBIN,TOTAL 0.6 mg/dL (0.2-1.0); BUN - BLOOD UREA NITROGEN 30 mg/dL (6-20); CALCIUM 10.1 mg/dL (8.5-10.3); CARBON DIOXIDE - CO2 28 mmol/L (21-32); CHLORIDE 105 mmol/L (101-111); CHOL/HDL RATIO 4.6 (<4.4); CHOLESTEROL 139 mg/dL; CREATININE 1.2 mg/dL (0.6-1.3); GFR - MDRD 44 (>89); GLUCOSE 212 mg/dL (74-104); HDL CHOLESTEROL 30 mg/dL; LDL CHOLESTEROL,CALCULATED 43 mg/dL; LDL/HDL RATIO 1.4 (<4.4); POTASSIUM 4.5 mmol/L (3.5-4.5); SODIUM 141 mmol/L (135-145); TOTAL PROTEIN 6.9 g/dL (6.4-8.9); TRIGLYCERIDES 329 mg/dL (48-352); VLDL CHOLESTEROL 66 mg/dL
[2024-02-13 09:08] LABS: CREATININE,URINE 124.8 mg/dL; MICROALBUM/CREATININE RATIO,UR 12.8 ug/mg (<30.0); MICROALBUMIN,URINE 1.6 mg/dL
[2024-02-13 09:20] LABS: THYROID STIMULATING HORMONE 4.55 uIU/mL (0.34-5.60)
== END 2024-02-13 08:30 | disposition home or self-care (01) ==
LOC: LAB 08:29
PROVIDERS: ATTEND Nurse Practitioner
DX: I10 Essential (primary) hypertension (principal); E78.5 Hyperlipidemia, unspecified; E11.9 Type 2 diabetes mellitus without complications; E03.9 Hypothyroidism, unspecified
CPT/HCPCS: 36415; 80053; 80061; 82043; 82570; 83036; 83721; 84439; 84443; 85025

== ENCOUNTER 2024-03-22 11:09 | Outpatient (CLI) | payer MEDICARE, MEDICAID ==
--- NOTE | 2024-03-23 08:43 | Mammography Report ---
BILATERAL DIGITAL SCREENING MAMMOGRAM 3D/2D: 03/22/2024 CLINICAL: Routine screening. Comparison is made to exams dated: 05/21/2023 mammogram, 09/24/2022 mammogram, and 11/08/2014 mammogram - [facility]. There are scattered areas of fibroglandular density in both breasts (category b / 25%-50% glandular t issue). No significant masses, calcifications, or other findings are seen in either breast. There has been no significant interval change. IMPRESSION: NEGATIVE There is no mammographic evidence of malignancy. A 1 year screening mammogram is recommended. Based on the Tyrer Cuzick model (a risk assessment model) the patient's lifetime risk is 2.5% and her 10 year risk is 2.5%. According to the ACR, ACS, and NCCN guidelines, an annual breast MRI exam june g with mammogram is recommended if the patient's lifetime risk is 20% or greater. This exam was interpreted at Station ID: [id number]. NOTE: For mammograms, a report in lay terms will be sent to the patient. Approximately 15% of breast malignancies will not be visualized mammographically. In the management of a palpable breast mass, a negative mammogram must not discourage biopsy of a clinically suspicious lesion. Electronically Signed By: Joselin [email or web address]/irina:03/22/2024 14:54:06 letter sent: No_Letter ACR BI-RADS Category 1: Negative 3341F PARENCHYMAL PATTERN: (A) - The breast(s) demonstrate(s) scattered fibroglandular densities. BI-RADS CATEGORY: (1) - 1 RECOMMENDATION: (ANNUAL) - Recommend routine annual screening mammography. [id number] 1 year screening LATERALITY: (B)
== END 2024-03-22 11:10 | disposition home or self-care (01) ==
LOC: DI 11:09
PROVIDERS: ATTEND Nurse Practitioner
DX: Z12.31 Encounter for screening mammogram for malignant neoplasm of breast (principal); R92.323 Mammographic fibroglandular density, bilateral breasts

== ENCOUNTER 2024-06-17 12:39 | Outpatient (CLI) | payer MEDICARE, MEDICAID ==
[2024-06-17 13:30] LABS: CHOL/HDL RATIO 4.6 (<4.4); CHOLESTEROL 128 mg/dL; HDL CHOLESTEROL 28 mg/dL; LDL CHOLESTEROL,CALCULATED 45 mg/dL; LDL/HDL RATIO 1.6 (<4.4); TRIGLYCERIDES 277 mg/dL; VLDL CHOLESTEROL 55 mg/dL
[2024-06-17 14:02] LABS: ESTIMATED AVERAGE GLUCOSE 134 mg/dL (70-100); HEMOGLOBIN A1c% 6.3 % (4.27-6.07)
== END 2024-06-17 12:40 | disposition home or self-care (01) ==
LOC: LAB 12:39
PROVIDERS: ATTEND Nurse Practitioner
DX: E78.5 Hyperlipidemia, unspecified (principal); E11.319 Type 2 diabetes mellitus with unspecified diabetic retinopathy without macular edema
CPT/HCPCS: 36415; 80061; 83036; 83721